=== PATIENT | female | born 1945 | race Caucasian/White ===

== ENCOUNTER 2017-09-28 12:11 | Inpatient (IN) | payer OTHER, MEDICARE ==
[2017-09-28] VITALS (23 sets, daily range): BP systolic 94–126; BP diastolic 54–82; PULSE 95–120; RESP 20–60; TEMP 98.1–98.3; O2SAT 57–100
[~2017-09-28] VITALS: Ht 162.6 cm; Wt 78.4 kg
[2017-09-28] MEDS ORDERED: cefTRIAXone INJ 2,000 MG in SODIUM CHLORIDE 0.9% INJ 100 ML IV STA (12:20)
[2017-09-28] MEDS ORDERED: AZITHROMYCIN INJ 500 MG in SODIUM CHLOR 0.9% 250 ML INJ 250 ML IV STA (12:20)
--- NOTE | 2017-09-28 12:27 | PD ---
HPI Chief Complaint: Respiratory Distress Time Seen by Provider: 12:20 Travel History International Travel<30 days: No Contact w/Intl Traveler<30days: No Traveled to known affect area: No History of Present Illness HPI Patient is brought in by . Severe shortness of breath, not able to provide much history, able to get some history from the . states that she has been progressively getting worse over the last 3 days or so she has been increasing her own home oxygen from 2 L up to as high as 5 nasal cannula. They try to go see their primary by where turned away and told to go to the ER because her pulse ox symmetry was low, per 's statement her oxygen level was 79 or 80% on oxygen while at the clinic, patient was able to be transported by private vehicle upon arrival at the emergency department here patient was straight back into her room [facility] Past Medical History ?: Not Social History Tobacco Use: No Allergies-Medications (Allergen,Severity, Reaction): Coded Allergies: doxycycline (Verified Allergy, Unknown, 09/28/17) sulfamethoxazole (Verified Allergy, Unknown, 09/28/17) trimethoprim (Verified Allergy, Unknown, 09/28/17) Reported Meds & Prescriptions Reported Meds & Active Scripts Active Reported Simvastatin 10 Mg Tab 10 Mg PO HS Review of Systems ROS Limitations: Clinical Condition General / Constitutional: No: Fever Eyes: No: Visual changes HENT: No: Headaches Cardiovascular: No: Chest Pain or Discomfort Respiratory: Positive: Shortness of Breath, Wheezing Gastrointestinal: No: Abdominal Pain Genitourinary: No: Dysuria Musculoskeletal: No: Pain Skin: No Rash Neurologic: No: Weakness Psychiatric: No: Depression Endocrine: No: Polydipsia Hematologic/Lymphatic: No: Easy Bruising Physical Exam Narrative GENERAL: Elderly female in respiratory distress SKIN: Warm and dry. HEAD: Atraumatic. Normocephalic. EYES: Pupils equal and round. No scleral icterus. No injection or drainage. ENT: No nasal bleeding or discharge. Mucous membranes pink and moist. NECK: Trachea midline. No JVD. CARDIOVASCULAR: Regular rate and rhythm. RESPIRATORY: Suprasternal and intercostal accessory muscle use. Severely affected and low tidal volumes bilaterally, moderate to severe wheezing bilaterally... Half to 1 word dyspnea GASTROINTESTINAL: Abdomen soft, non-tender, nondistended. MUSCULOSKELETAL: Extremities without clubbing, cyanosis, or edema. No obvious deformities. NEUROLOGICAL: Awake and alert. No obvious cranial nerve deficits. Motor grossly within normal limits. Five out of 5 muscle strength in the arms and legs. Normal speech. PSYCHIATRIC: Appropriate mood and affect; insight and judgment normal. Data Data Last Documented VS Vital Signs Date Time Temp Pulse Resp B/P (MAP) Pulse Ox O2 Delivery O2 Flow Rate FiO2 09/28/17 13:15 109 20 101/71 (81) 98 BiPAP 09/28/17 12:45 40 09/28/17 12:43 3.00 09/28/17 12:16 98.3 Orders Orders Sepsis Workup Initiated (09/28/17 ) Electrocardiogram (09/28/17 12:20) Complete Blood Count With Diff (09/28/17 12:20) Comprehensive Metabolic Panel (09/28/17 12:20) Prothrombin Time / Inr (Pt) (09/28/17 12:20) Act Partial Throm Time (Ptt) (09/28/17 12:20) Lactic Acid Sepsis Protocol (09/28/17 12:20) Lipase (09/28/17 12:20) Ckmb (Isoenzyme) Profile (09/28/17 12:20) Troponin I (09/28/17 12:20) Urinalysis - C+S If Indicated (09/28/17 12:20) Influenzae A/B Antigen (09/28/17 12:20) Blood Culture (09/28/17 12:20) Pneumococcal Urinary Antigen (09/28/17 12:20) Legionella Urinary Antigen (09/28/17 12:20) Chest, Single Ap (09/28/17 12:20) Ecg Monitoring (09/28/17 12:20) Iv Access Insert/Monitor (09/28/17 12:20) Oximetry (09/28/17 12:20) Oxygen Administration (09/28/17 12:20) Urinary Catheter Insert/Apply (09/28/17 12:20) Ceftriaxone Inj (Rocephin Inj) (09/28/17 12:20) Azithromycin Inj (Zithromax Inj) (09/28/17 12:20) Albuterol Neb (Albuterol Neb) (09/28/17 12:30) Methylprednisolone So Succ Inj (Solumedr (09/28/17 12:30) Sodium Chlorid 0.9% 500 Ml Inj (Ns 500 M (09/28/17 12:30) Arterial Blood Gas (Abg) (09/28/17 12:20) Resp Bipap / Cpap Non Invas Vt (09/28/17 12:20) Magnesium Sulfate 1 Gm Premix (Magnesium (09/28/17 12:30) Labs Laboratory Tests Test 09/28/17 12:22 White Blood Count 10.9 TH/MM3 Red Blood Count 5.21 MIL/MM3 Hemoglobin 15.6 GM/DL Hematocrit 46.7 % Mean Corpuscular Volume 89.5 FL Mean Corpuscular Hemoglobin 29.9 PG Mean Corpuscular Hemoglobin Concent 33.4 % Red Cell Distribution Width 14.6 % Platelet Count 301 TH/MM3 Mean Platelet Volume 6.8 FL Neutrophils (%) (Auto) 77.7 % Lymphocytes (%) (Auto) 15.1 % Monocytes (%) (Auto) 5.5 % Eosinophils (%) (Auto) 0.8 % Basophils (%) (Auto) 0.9 % Neutrophils # (Auto) 8.5 TH/MM3 Lymphocytes # (Auto) 1.6 TH/MM3 Monocytes # (Auto) 0.6 TH/MM3 Eosinophils # (Auto) 0.1 TH/MM3 Basophils # (Auto) 0.1 TH/MM3 CBC Comment DIFF FINAL Differential Comment Prothrombin Time 10.0 SEC Prothromb Time International Ratio 1.0 RATIO Activated Partial Thromboplast Time 30.3 SEC Blood Urea Nitrogen 11 MG/DL Creatinine 0.89 MG/DL Random Glucose 111 MG/DL Total Protein 7.8 GM/DL Albumin 3.2 GM/DL Calcium Level 9.9 MG/DL Alkaline Phosphatase 66 U/L Aspartate Amino Transf (AST/SGOT) 27 U/L Alanine Aminotransferase (ALT/SGPT) 25 U/L Total Bilirubin 0.6 MG/DL Sodium Level 137 MEQ/L Potassium Level 3.6 MEQ/L Chloride Level 100 MEQ/L Carbon Dioxide Level 27.6 MEQ/L Anion Gap 9 MEQ/L Estimat Glomerular Filtration Rate 63 ML/MIN Lactic Acid Level 1.7 mmol/L Total Creatine Kinase 34 U/L Troponin I LESS THAN 0.02 NG/ML Lipase 63 U/L MDM Medical Decision Making Medical Screen Exam Complete: Yes Emergency Medical Condition: Yes Medical Record Reviewed: Yes Interpretation(s) Sinus tachycardia, 109 bpm, nonspecific findings noted, no contiguous ST elevations or depressions, motion artifact Differential Diagnosis Hypoxemic respiratory failure due to COPD exacerbation versus pneumonia versus pneumothorax versus pulmonary edema versus anemia versus STEMI Narrative Course Coagulation profile within normal limits CBC shows no leukocytosis, no left shift, no anemia, normal platelet count Electrolytes are all within normal limits, normal kidney liver and pancreatic functions First set of cardiac enzymes negative Lactic acid 1.7 which is negative Flu test negative Critical Care Narrative CRITICAL CARE NOTE: With evaluation of the patient, labs, EKG, receipt of radiologic studies, administration of medications, reevaluation the patient and discussion of the patient with the admitting physicians, the total critical care time was [60] minutes. Time to perform other separately billable procedures was not included in the critical care time. The patient received supplemental oxygen, hour long albuterol nebulizers, immediately upon arrival. Followed closely by magnesium, Rocephin and azithromycin, Solu-Medrol, BiPAP. On reevaluation after approximately 60 minutes of observation and care the patient's respiratory rate has decreased from mid 30s down to mid 20s, pulse oximetry with normal pleth wave showed 97- 100 which is much improved however this is on for supplemental liters of oxygen and BiPAP. The patient is now able to speak full sentences although difficult to understand with the BiPAP mask that is on. Physician Communication Physician Communication Discussed the case with Dr. GRIMES, who accepted patient, admit orders pending abg results Diagnosis Primary Impression: Hypoxemic respiratory failure Admitting Information Admitting Physician Requests: Admit Souleymane Haynes MD Sep 28, 2017 12:27
[2017-09-28] MEDS ORDERED: methylPREDNISolone SOD SUCC 125 MG/2 ML VIAL IV PUSH ONE (12:30)
[2017-09-28] MEDS ORDERED: MAGNESIUM SULFATE 1 GM PREMIX 100 ML IV ONE (12:30)
[2017-09-28] MEDS ORDERED: SODIUM CHLORID 0.9% 500 ML INJ 500 ML IV ONE (12:30)
[2017-09-28] MEDS: RESP: ALBUTEROL 2.5 MG/3 ML NEB (SCH) INH (12:37)
[2017-09-28] MEDS ORDERED: SIMV10TA PO (12:43)
[2017-09-28 12:47] LABS: AUTOMATED NEUTROPHIL # 8.5 TH/MM3 (1.8-7.7); BASOPHIL # 0.1 TH/MM3 (0-0.2); BASOPHIL % 0.9 % (0.0-2.0); EOSINOPHIL # 0.1 TH/MM3 (0-0.4); EOSINOPHIL % 0.8 % (0.0-4.0); HEMATOCRIT 46.7 % (35.0-46.0); HEMOGLOBIN 15.6 GM/DL (11.6-15.3); LYMPH % 15.1 % (9.0-44.0); LYMPHOCYTE # 1.6 TH/MM3 (1.0-4.8); MEAN CELL VOLUME 89.5 FL (80.0-100.0); MEAN CORPUSCULAR HEMOGLOBIN 29.9 PG (27.0-34.0); MEAN CORPUSCULAR HGB CONC 33.4 % (32.0-36.0); MEAN PLATELET VOLUME 6.8 FL (7.0-11.0); MONO % 5.5 % (0.0-8.0); MONOCYTE # 0.6 TH/MM3 (0-0.9); NEUT % 77.7 % (16.0-70.0); PLATELET COUNT 301 TH/MM3 (150-450); RED BLOOD COUNT 5.21 MIL/MM3 (4.00-5.30); RED CELL DISTRIBUTION WIDTH 14.6 % (11.6-17.2); WHITE BLOOD COUNT 10.9 TH/MM3 (4.0-11.0)
[2017-09-28 12:52] LABS: CHLORIDE 100 MEQ/L (98-107); SODIUM (NA) 137 MEQ/L (136-145)
[2017-09-28 12:56] LABS: CALCIUM 9.9 MG/DL (8.5-10.1)
[2017-09-28 12:57] LABS: ALBUMIN 3.2 GM/DL (3.4-5.0); BICARBONATE 27.6 MEQ/L (21.0-32.0); BLOOD UREA NITROGEN 11 MG/DL (7-18); GLUCOSE,RANDOM 111 MG/DL (74-106)
[2017-09-28 12:59] LABS: ALT (GPT) 25 U/L (10-53); AST (GOT) 27 U/L (15-37); CREATININE 0.89 MG/DL (0.50-1.00); GLOMERULAR FILTRATION RATE 63 ML/MIN (>89)
[2017-09-28 13:01] LABS: TOTAL BILIRUBIN ADULT 0.6 MG/DL (0.2-1.0); TOTAL PROTEIN 7.8 GM/DL (6.4-8.2)
[2017-09-28 13:02] LABS: ALKALINE PHOSPHATASE 66 U/L (45-117)
[2017-09-28 13:05] LABS: TROPONIN I LESS THAN 0.02 NG/ML (0.02-0.05)
--- NOTE | 2017-09-28 14:39 | RADRPT ---
EXAM DATE: 09/28/2017 12:39 PM EDT AGE/SEX: 72 years / Female INDICATIONS: Short of breath. CLINICAL DATA: This is the patient's initial encounter. Patient reports that signs and symptoms have been present for 1 day and indicates a pain score of 1/10. MEDICAL/SURGICAL HISTORY: . Pulmonary fibrosis Mastectomy, right. COMPARISON: No prior exams available for comparison. FINDINGS: A single AP view of the chest demonstrates chronic interstitial changes throughout both lungs. No inf iltrate or effusion. Heart is at the upper limits of normal in terms of size. Elevation of the right hemidiaphragm. Degenerative changes of the thoracic spine. CONCLUSION: Chronic interstitial changes. No acute infiltrate. Electronically signed by: Carlitos Hubbard MD 09/28/2017 12:49 PM EDT
[2017-09-28 16:29] LABS: BILIRUBIN, URINE NEG (NEG); BLOOD, URINE LARGE (NEG); GLUCOSE,URINE NEG (NEG); KETONE, URINE NEG (NEG); NITRITE,URINE NEG (NEG); PH, URINE 6.5 (5.0-8.5); URINE COLOR YELLOW (YELLW/STRAW); URINE LEUKOCYTE ESTERASE TRACE (NEG)
[2017-09-28 16:35] LABS: AMORPHOUS SEDIMENT, URINE FEW; TRANSITIONAL EPI CELLS, URINE 0-5 /hpf
[2017-09-28] MEDS ORDERED: MAGNESIUM HYDROXIDE SUSP 30 ML CUP PO PRN (17:00)
[2017-09-28] MEDS ORDERED: LACTULOSE SYRUP 20 GM/30 ML CUP PO PRN (17:00)
[2017-09-28] MEDS ORDERED: SENNOSIDES 8.6 MG TAB PO PRN (17:00)
[2017-09-28] MEDS ORDERED: BISACODYL 10 MG SUPP RECTAL PRN (17:00)
[2017-09-28] MEDS ORDERED: SODIUM CHLORIDE 0.9% FLUSH 10 ML FLUSH IV FLUSH PRN (17:00)
[2017-09-28] MEDS ORDERED: NALOXONE HCL 0.4 MG/ML AMP IV PUSH PRN (17:00)
[2017-09-28] MEDS ORDERED: METOCLOPRAMIDE HCL 10 MG/2 ML VIAL IV PUSH PRN (17:00)
[2017-09-28] MEDS ORDERED: RESP: ALBUTEROL 2.5 MG/IPRATROPIUM 0.5 MG NEB (PRN) NEB (17:15)
--- NOTE | 2017-09-28 18:32 | HHI.HP ---
[facility] Service [facility] Primary Care Physician Rebecca Byers Do, MD Admission Diagnosis HYPOXEMIC RESPIRATORY FAILURE ON BIPAP Diagnoses: Travel History International Travel<30 Days: No Contact w/Intl Traveler <30 Da: No Traveled to Known Affected Are: No History of Present Illness Patient is a 72-year-old female with past medical history of idiopathic pulmonary fibrosis, thyroid nodules, hyperlipidemia presented to the ED with severe shortness of breath. Patient's radiotelegrapher is Dr. Wick. She states that she was so short of breath since yesterday that she made an appointment with her primary care doctor, Dr. Price, at 1130 am and she was told to come directly to the emergency room. She was already on 5 L nasal cannula and was satting in the 80s. Patient states that when she saw Dr. Wick on June she had asked about being on prednisone however at the time he did not feel that giving it to her was warranted as he was concerned about the side effects of the medication. However at the end of July on she started feeling really bad but again turned the corner and felt better however on August [address] Wick and told him about her symptoms and he started her on prednisone 10mg 3 times daily. Over the past 2 weeks after that prescription was started she felt very much improved however as the taper started she started progressively feeling worse. She completed the taper and she states that she could feel her lungs worsening as the dose was being decreased. On Sunday/ of this week she really felt bad and yesterday was her worst day. She could barely walk from her bedroom to her the bathroom and she started increasing her oxygen requirement to 5 L. At some point her O2 sats dropped to 44 and she notified her and ended up making an appointment with Dr. Price (as she needs her PCP to place a referral to her pulm before she can f/u w Dr. Wick). She has a chronic cough. She denies any fevers or chills. She denies any nausea vomiting , burning with urination, abdominal pain. She has some pain in between her ribs from using her accessory muscles for the past few days. She denies any sick contacts. She denies however any actual chest pains. Patient was seen in the emergency room and started on BiPAP and received IV steroids. She is now in the ICU and off BiPAP on 4 L nasal cannula. She tells me she is 90% better. She feels so much better that she wonders when she can go home. Review of Systems Except as stated in HPI: all other systems reviewed are Neg Past Family Social History Past Medical History IPF, hyperlipidemia, thyroid nodules Past Surgical History Stapedectomy on the left, right mastectomy, vaginal cyst removed, cyst removal on the arch of her foot, right foot reconstruction. Reported Medications Reported Meds & Active Scripts Active Reported Simvastatin 10 Mg Tab 10 Mg PO HS Allergies: Coded Allergies: doxycycline (Verified Allergy, Unknown, 09/28/17) sulfamethoxazole (Verified Allergy, Unknown, 09/28/17) trimethoprim (Verified Allergy, Unknown, 09/28/17) Family History Parents were very secretive about their medical history. She does not know much about them other than her mother had her gallbladder removed and her father was in the hospital for almost 5 years due "broken back" Social History Quit smoking in 2004 however she used to smoke a pack a day which last 5-7 days. Denies alcohol use or illegal drug use. Physical Exam Vital Signs Vital Signs Date Time Temp Pulse Resp B/P (MAP) Pulse Ox O2 Delivery O2 Flow Rate FiO2 09/28/17 15:36 09/28/17 15:30 100 40 09/28/17 15:15 95 20 101/54 (70) 98 BiPAP 09/28/17 14:16 105 22 108/66 (80) 95 BiPAP 09/28/17 13:15 109 20 101/71 (81) 98 BiPAP 09/28/17 12:45 98 40 09/28/17 12:43 118 24 108/77 (87) 90 Nasal Cannula 3.00 09/28/17 12:36 92 Nasal Cannula 3.00 09/28/17 12:36 92 Nasal Cannula 3.00 09/28/17 12:31 92 Nasal Cannula 3.00 09/28/17 12:16 98.3 120 60 121/75 (90) 57 Physical Exam GENERAL: Laying in bed, still mildly using accessory muscles. SKIN: No rashes, ecchymoses or lesions. Cool and dry. HEAD: Atraumatic. Normocephalic. No temporal or scalp tenderness. EYES: Extraocular motions intact. No scleral icterus. No injection or drainage. ENT: Nose without drainage.Airway patent. NECK: Trachea midline. CARDIOVASCULAR: Mildly tachycardic with no murmurs. RESPIRATORY: Crackles at the bases but no wheezing GASTROINTESTINAL: Abdomen soft, non-tender, nondistended. No guarding. MUSCULOSKELETAL: Extremities without edema. No calf tenderness. Negative Homans sign bilaterally. NEUROLOGICAL: Awake and alert. Cranial nerves II through XII intact. Motor and sensory grossly within normal limits. Normal speech. Laboratory Laboratory Tests Test 09/28/17 12:22 09/28/17 13:54 09/28/17 16:15 White Blood Count 10.9 Red Blood Count 5.21 Hemoglobin 15.6 Hematocrit 46.7 Mean Corpuscular Volume 89.5 Mean Corpuscular Hemoglobin 29.9 Mean Corpuscular Hemoglobin Concent 33.4 Red Cell Distribution Width 14.6 Platelet Count 301 Mean Platelet Volume 6.8 Neutrophils (%) (Auto) 77.7 Lymphocytes (%) (Auto) 15.1 Monocytes (%) (Auto) 5.5 Eosinophils (%) (Auto) 0.8 Basophils (%) (Auto) 0.9 Neutrophils # (Auto) 8.5 Lymphocytes # (Auto) 1.6 Monocytes # (Auto) 0.6 Eosinophils # (Auto) 0.1 Basophils # (Auto) 0.1 CBC Comment DIFF FINAL Differential Comment Prothrombin Time 10.0 Prothromb Time International Ratio 1.0 Activated Partial Thromboplast Time 30.3 Blood Urea Nitrogen 11 Creatinine 0.89 Random Glucose 111 Total Protein 7.8 Albumin 3.2 Calcium Level 9.9 Alkaline Phosphatase 66 Aspartate Amino Transf (AST/SGOT) 27 Alanine Aminotransferase (ALT/SGPT) 25 Total Bilirubin 0.6 Sodium Level 137 Potassium Level 3.6 Chloride Level 100 Carbon Dioxide Level 27.6 Anion Gap 9 Estimat Glomerular Filtration Rate 63 Lactic Acid Level 1.7 Total Creatine Kinase 34 Troponin I LESS THAN 0.02 Lipase 63 Blood Gas Puncture Site LT BRACHIAL Blood Gas Patient Temperature 98.6 Blood Gas HCO3 27 Blood Gas Base Excess 4.0 Blood Gas Oxygen Saturation 96 Arterial Blood pH 7.49 Arterial Blood Partial Pressure CO2 37 Arterial Blood Partial Pressure O2 115 Arterial Blood Oxygen Content 20.1 Arterial Blood Carboxyhemoglobin 1.9 Arterial Blood Methemoglobin 1.1 Blood Gas Hemoglobin 14.8 Oxygen Delivery Device BIPAP Blood Gas Ventilator Setting IPAP 10/ EPAP 5 Blood Gas Inspired Oxygen 40 Urine Collection Type CLEAN CATCH Urine Color YELLOW Urine Turbidity SL CLOUDY Urine pH 6.5 Urine Specific [place] LESS/EQUAL 1.005 Urine Protein NEG Urine Glucose (UA) NEG Urine Ketones NEG Urine Occult Blood LARGE Urine Nitrite NEG Urine Bilirubin NEG Urine Urobilinogen 0.2 Urine Leukocyte Esterase TRACE Urine RBC 20-24 Urine WBC 9-14 Urine Squamous Epithelial Cells 6-8 Urine Transitional Epithelial Cells 0-5 Urine Amorphous Sediment FEW Microscopic Urinalysis Comment CULTURE INDICATED Urine Collection Time 1615 Date/Time Source Procedure Growth Status 09/28/17 12:22 Blood Peripheral Aerobic Blood Culture Pending Received 09/28/17 12:22 Blood Peripheral Anaerobic Blood Culture Pending Received 09/28/17 12:47 Nasal Washing Influenza Types A,B Antigen (ANTHONY) - Final NEGATIVE FOR FLU A AND B ANTIGEN.... Complete 09/28/17 16:20 Urine Catheterized Urine Legionella Antigen Pending Received 09/28/17 16:20 Urine Catheterized Urine Streptococcus pneumoniae Antigen (M Pending Received Result Diagram: 09/28/17 1222 09/28/17 1222 Imaging Last Impressions Chest X-Ray 09/28/17 1220 Signed Impressions: CONCLUSION: Chronic interstitial changes. No acute infiltrate. Caprini VTE Risk Assessment Caprini VTE Risk Assessment: Mod/High Risk (score >= 2) Caprini Risk Assessment Model Point Value = 1 Point Value = 2 Point Value = 3 Point Value = 5 Age 41-60 Minor surgery BMI > 25 kg/m2 Swollen legs Varicose veins or History of unexplained or recurrent spontaneous Oral contraceptives or hormone replacement Sepsis (< 1 month) Serious lung disease, including pneumonia (< 1 month) Abnormal pulmonary function Acute myocardial infarction Congestive heart failure (< 1 month) History of inflammatory bowel disease Medical patient at bed rest Age 61-74 Arthroscopic surgery Major open surgery (> 45 min) Laparoscopic surgery (> 45 min) Malignancy Confined to bed (> 72 hours) Immobilizing plaster cast Central venous access Age >= 75 History of VTE Family history of VTE Factor V Leiden Prothrombin [id number] Lupus anticoagulant Anticardiolipin antibodies Elevated serum homocysteine Heparin-induced thrombocytopenia Other congenital or acquired thrombophilia Stroke (< 1 month) Elective arthroplasty Hip, pelvis, or leg fracture Acute spinal cord injury (< 1 month) Prophylaxis Regimen Total Risk Factor Score Risk Level Prophylaxis Regimen 0-1 Low Early ambulation 2 Moderate Order ONE of the following: *Sequential Compression Device (SCD) *Heparin 5000 units SQ BID 3-4 Higher Order ONE of the following medications: *Heparin 5000 units SQ TID *Enoxaparin/Lovenox 40 mg SQ daily (WT < 150 kg, CrCl > 30 mL/min) *Enoxaparin/Lovenox 30 mg SQ daily (WT < 150 kg, CrCl > 10-29 mL/min) *Enoxaparin/Lovenox 30 mg SQ BID (WT < 150 kg, CrCl > 30 mL/min) AND/OR *Sequential Compression Device (SCD) 5 or more Highest Order ONE of the following medications: *Heparin 5000 units SQ TID (Preferred with Epidurals) *Enoxaparin/Lovenox 40 mg SQ daily (WT < 150 kg, CrCl > 30 mL/min) *Enoxaparin/Lovenox 30 mg SQ daily (WT < 150 kg, CrCl > 10-29 mL/min) *Enoxaparin/Lovenox 30 mg SQ BID (WT < 150 kg, CrCl > 30 mL/min) AND *Sequential Compression Device (SCD) Assessment and Plan Assessment and Plan Idiopathic pulmonary fibrosis/respiratory failure/hypoxia: Patient came into the ED with sats in the 50s. He was immediately started on BiPAP and ABG after an hour showed pH of 7.49, PCO2 of 37, HCO3 of 27. Patient was admitted to the ICU. She received a dose of Solu-Medrol, antibiotics, magnesium sulfate IV and breathing treatment x3 in the emergency room. Patient currently is off BiPAP. She is telling me that she is feeling a lot better almost 90% better. She is currently on 4 L nasal cannula satting 95%. Have continued the IV Solu-Medrol, antibiotics such as ceftriaxone and azithromycin and will continue breathing treatments every 6 hours while awake. She tells me that she had a great response to outpatient steroid therapy. At this time I will consult pulmonology for further recommendations. She is known to Dr. Wick. Chest x- ray just shows chronic interstitial changes with no acute infiltrate. Monitor vital signs closely. Continue to titrate down the oxygen requirements. Hopefully we can bring her down to 2 L nasal cannula. Encourage use of incentive spirometer every hour while awake. Hyperlipidemia: Resume her home medication. UA is concerning for UTI with trace leukocyte esterase, 9-14 WBC, 20-24 RBCs however there are squamous epithelial cells 6-8. We will follow up the urine cultures patient denied any symptoms. Currently she is on IV Rocephin we will continue for now and monitor DVT prophylaxis: Lovenox Code Status Full code Discussed Condition With ER physician, patient Celine Scott MD Sep 28, 2017 18:32
[2017-09-28] MEDS: ENOXAPARIN SODIUM 40 MG/0.4 ML SYRINGE SQ SCH (18:49)
[2017-09-28] MEDS: methylPREDNISolone SOD SUCC 40 MG/1 ML VIAL IV PUSH SCH ×2 (18:49→23:20)
[2017-09-28] MEDS: RESP: ALBUTEROL 2.5 MG/IPRATROPIUM 0.5 MG NEB (SCH) NEB (19:13)
[2017-09-28] MEDS ORDERED: CHLORHEXIDINE GLUCONATE 2 % 1 PACK (2 CLOTHS)(extra cloths) TOPICAL PRN (20:30)
[2017-09-28] MEDS: DOCUSATE SODIUM 50 MG/SENNA 8.6 MG TAB PO SCH (21:00)
[2017-09-28] MEDS: PRAVASTATIN SOD 20 MG TAB PO SCH (21:00)
[2017-09-28] MEDS: SODIUM CHLORIDE 0.9% FLUSH 10 ML FLUSH IV FLUSH SCH (23:20)
[2017-09-29] VITALS (19 sets, daily range): BP systolic 95–134; BP diastolic 56–72; PULSE 80–120; RESP 16–43; TEMP 96.8–98.2; O2SAT 90–98
[2017-09-29] MEDS: CHLORHEXIDINE GLUCONATE 2 % 1 PACK (2 CLOTHS)(taper/protocol) TOPICAL SCH (04:00)
[2017-09-29] MEDS: methylPREDNISolone SOD SUCC 40 MG/1 ML VIAL IV PUSH SCH ×3 (05:45→22:42)
[2017-09-29 06:37] LABS: AUTOMATED NEUTROPHIL # 10.3 TH/MM3 (1.8-7.7); BASOPHIL # 0.1 TH/MM3 (0-0.2); BASOPHIL % 0.7 % (0.0-2.0); EOSINOPHIL % 0.1 % (0.0-4.0); HEMATOCRIT 40.9 % (35.0-46.0); HEMOGLOBIN 13.9 GM/DL (11.6-15.3); LYMPH % 9.2 % (9.0-44.0); LYMPHOCYTE # 1.1 TH/MM3 (1.0-4.8); MEAN CELL VOLUME 88.6 FL (80.0-100.0); MEAN CORPUSCULAR HEMOGLOBIN 30.1 PG (27.0-34.0); MEAN PLATELET VOLUME 7.5 FL (7.0-11.0); MONO % 0.9 % (0.0-8.0); MONOCYTE # 0.1 TH/MM3 (0-0.9); NEUT % 89.1 % (16.0-70.0); PLATELET COUNT 283 TH/MM3 (150-450); RED BLOOD COUNT 4.61 MIL/MM3 (4.00-5.30); RED CELL DISTRIBUTION WIDTH 14.8 % (11.6-17.2); WHITE BLOOD COUNT 11.6 TH/MM3 (4.0-11.0)
[2017-09-29 07:05] LABS: BICARBONATE 26.4 MEQ/L (21.0-32.0); CALCIUM 8.7 MG/DL (8.5-10.1); CREATININE 0.89 MG/DL (0.50-1.00)
[2017-09-29] MEDS: RESP: ALBUTEROL 2.5 MG/IPRATROPIUM 0.5 MG NEB (SCH) NEB ×3 (07:44→19:30)
[2017-09-29] MEDS: DOCUSATE SODIUM 50 MG/SENNA 8.6 MG TAB PO SCH ×2 (09:00→20:53)
[2017-09-29] MEDS: AZITHROMYCIN 250 MG TAB PO SCH (09:06)
[2017-09-29] MEDS: SODIUM CHLORIDE 0.9% FLUSH 10 ML FLUSH IV FLUSH SCH ×2 (09:06→21:02)
--- NOTE | 2017-09-29 11:20 | HHI.PR ---
Subjective Remarks Pt states she feels a lot better. No chest pains. no n/v/abdominal pain. Wonders if she will be getting steroids at the time of discharge. Concerns about the tapering of steroids. Objective Vitals Vital Signs Date Time Temp Pulse Resp B/P (MAP) Pulse Ox O2 Delivery O2 Flow Rate FiO2 09/29/17 07:46 95 Nasal Cannula 4.00 09/29/17 06:00 83 09/29/17 05:42 88 27 100/65 (77) 96 09/29/17 04:42 98.2 90 24 95/56 (69) 96 09/29/17 04:00 90 09/29/17 03:42 88 26 98/60 (73) 95 09/29/17 02:42 88 31 97/62 (74) 95 09/29/17 02:00 80 09/29/17 01:42 82 29 97/66 (76) 97 09/29/17 00:42 97.7 82 28 98/63 (75) 98 09/29/17 00:00 82 09/28/17 23:50 96 40 09/28/17 23:42 104 29 126/79 (95) 94 09/28/17 22:42 98 28 109/72 (84) 93 09/28/17 22:00 104 09/28/17 21:42 102 32 109/63 (78) 92 09/28/17 20:42 98.2 108 30 100/60 (73) 90 09/28/17 20:00 118 09/28/17 19:42 116 43 103/57 (72) 92 09/28/17 19:15 92 Nasal Cannula 4.00 09/28/17 18:50 116 60 117/68 (84) 09/28/17 18:42 116 48 94/59 (71) 09/28/17 18:00 108 48 111/68 (82) 93 09/28/17 18:00 108 09/28/17 17:01 98.1 106 39 113/82 (92) 96 09/28/17 17:00 110 09/28/17 16:00 106 09/28/17 15:36 09/28/17 15:30 100 40 09/28/17 15:15 95 20 101/54 (70) 98 BiPAP 09/28/17 14:16 105 22 108/66 (80) 95 BiPAP 09/28/17 13:15 109 20 101/71 (81) 98 BiPAP 09/28/17 12:45 98 40 09/28/17 12:43 118 24 108/77 (87) 90 Nasal Cannula 3.00 09/28/17 12:36 92 Nasal Cannula 3.00 09/28/17 12:36 92 Nasal Cannula 3.00 09/28/17 12:31 92 Nasal Cannula 3.00 09/28/17 12:16 98.3 120 60 121/75 (90) 57 I/O 09/28/17 09/28/17 09/28/17 09/29/17 09/29/17 09/29/17 07:00 15:00 23:00 07:00 15:00 23:00 Intake Total 600 ml 590 ml 480 ml Output Total 400 ml 400 ml Balance 600 ml 190 ml 80 ml Intake Oral 240 ml 480 ml IV Total 600 ml 350 ml Output Urine Total 400 ml 400 ml # Bowel Movements 0 0 Result Diagram: 09/29/17 0530 09/29/17 0530 Imaging Last Impressions Chest X-Ray 09/28/17 1220 Signed Impressions: CONCLUSION: Chronic interstitial changes. No acute infiltrate. Objective Remarks GENERAL: appears CARDIOVASCULAR: Mildly tachycardic with no murmurs. RESPIRATORY: Crackles at the bases but no wheezing, minimal use of accessory muscles. on 4L GASTROINTESTINAL: Abdomen soft, non-tender, nondistended. No guarding. MUSCULOSKELETAL: Extremities without edema. No calf tenderness. Negative Homans sign bilaterally. NEUROLOGICAL: Awake and alert. Normal speech. A/P Assessment and Plan Idiopathic pulmonary fibrosis/respiratory failure/hypoxia: Patient came into the ED with sats in the 50s. She was immediately started on BiPAP and ABG after an hour showed pH of 7.49, PCO2 of 37, HCO3 of 27. Patient was admitted to the ICU. She received a dose of Solu-Medrol, antibiotics, magnesium sulfate IV and breathing treatment x3 in the emergency room. Patient currently is off BiPAP. Pt states she is feeling a lot better. She is currently on 4 L nasal cannula satting 95%. Continued the IV Solu-Medrol which I have started to wean , antibiotics such as ceftriaxone and azithromycin and breathing treatments every 6 hours while awake. She tells me that she had a great response to outpatient steroid therapy. awaiting pulmonology team for further recommendations. She is known to Dr. Wick. Chest x-ray just shows chronic interstitial changes with no acute infiltrate. Monitor vital signs closely. Continue to titrate down the oxygen requirements. Hopefully we can bring her down to 2 L nasal cannula. Encourage use of incentive spirometer every hour while awake. Neg for legionella/strep Hyperlipidemia: Resume her home medication. UA is concerning for UTI with trace leukocyte esterase, 9-14 WBC, 20-24 RBCs however there are squamous epithelial cells 6-8. urine cultures pending but patient denied any symptoms. Currently she is on IV Rocephin we will continue for now and monitor DVT prophylaxis: Lovenox Discharge Planning continue to wean pt off oxygen, transfer her to floor. Celine Scott MD Sep 29, 2017 11:20
[2017-09-29] MEDS ORDERED: GLUCAGON 1 MG/ML VIAL OTHER PRN (11:30)
[2017-09-29] MEDS ORDERED: DEXTROSE 50% IN WATER 50 ML VIAL(D50) IV PUSH PRN (11:30)
[2017-09-29] MEDS: INSULIN ASPART SUPPLEMENTAL SCALE SQ SCH ×3 (12:00→21:02)
[2017-09-29 13:20] LABS: HEMOGLOBIN A1C 5.9 % (4.3-6.0)
[2017-09-29] MEDS ORDERED: cefTRIAXone INJ 1,000 MG in SODIUM CHLORIDE 0.9% INJ 100 ML IV SCH (16:00)
--- NOTE | 2017-09-29 17:28 | MB ---
cc: Hema Wick MD, Arjun D MD Hwang, DATE: 09/29/2017 REQUESTING PHYSICIAN: Dr. Celine Scott REASON FOR CONSULTATION: Shortness of breath, pulmonary fibrosis. HISTORY OF PRESENT ILLNESS: Ms. Morrow is a pleasant 72-year-old female who is known to me from the office. She has a history for pulmonary fibrosis. She uses oxygen 2 to 4 liters nasal cannula. She was being maintained on prednisone 30 mg and tapered it off. When she tapered off the prednisone, she felt that her breathing was getting worse to the extent that she could barely walk inside the house and she noted that her oxygen was going down in the 70s. She went to see Dr. Byers and she was hypoxic and sent to the emergency room. The patient was initially admitted in the ICU. She was given BiPAP therapy and nebulizer treatment. She feels significantly better, weaned down to 4 liters nasal cannula. LABORATORY DATA: WBC count 11.6, hemoglobin 13.9, hematocrit 40.9, MCV 88, platelet count 283. Sodium 137, potassium 3.6, chloride 100, CO2 of 26, BUN 14, creatinine 0.89. Blood gas: PH 7.49, pCO2 of 37, pO2 of 115 on 40% BiPAP. PAST MEDICAL HISTORY: Significant for history of pulmonary fibrosis, thyroid nodule, hyperlipidemia, history of Breast surgery. MEDICATIONS: She is currently taking Rocephin 1 gram and Solu-Medrol 40 mg q.8 hours. Zithromax 500 mg a day. Pravastatin 20 mg daily. Albuterol Atrovent nebulizer treatment, Lovenox 20 mg a day. ALLERGIES: DOXYCYCLINE, SULFAMETHOXAZOLE-TRIMETHOPRIM. SOCIAL HISTORY: She has a history of smoking, which she quit in 2004. No alcohol use. FAMILY HISTORY: She is . REVIEW OF SYSTEMS: She walks only short distances and gets exhausted easily, but she takes oxygen. No seizures, stroke. No DVT or pulmonary embolism. PHYSICAL EXAMINATION: GENERAL: Elderly female short of breath even at rest. VITAL SIGNS: Blood pressure 113/58, heart rate 111, respiratory rate 22, temperature 96.8, saturation 94% on 4 liters nasal cannula. HEENT: Unremarkable. NECK: Supple. JVD not raised. CHEST: Equal bilaterally. She has inspiratory rales. HEART: S1, S2 normal. ABDOMEN: Benign. EXTREMITIES: No edema. IMPRESSION: 1. Pulmonary fibrosis. 2. Hypoxia. 3. Anxiety disorder. 4. Hyperlipidemia. PLAN: I discussed with the patient. She is on IV Solu-Medrol. We will try to wean off and try to maintain her at home on 40 mg prednisone a day for a couple of weeks and then gradually titrate to the lowest dose that she can tolerate. I discussed with her the side effect of the prednisone, which she understands well. She has anxiety, does not want any anxiolytic medications . Continue subcutaneous Lovenox. I discussed with Dr. Scott probably we can discontinue her antibiotic. No need for antibiotic at this time. Further treatment will depend on the course in the hospital. Thank you, Dr. Scott, for this consult. MD DARI Melendrez/SA/ , 04:34 PM , 05:04 PM VAUGHN
[2017-09-29] MEDS: ENOXAPARIN SODIUM 40 MG/0.4 ML SYRINGE SQ SCH (17:48)
[2017-09-29] MEDS: PRAVASTATIN SOD 20 MG TAB PO SCH (20:54)
[2017-09-30] VITALS: BP 103/60; PULSE 100; RESP 16; TEMP 96.8; O2SAT 94
[2017-09-30] MEDS: CHLORHEXIDINE GLUCONATE 2 % 1 PACK (2 CLOTHS)(taper/protocol) TOPICAL SCH (00:24)
[2017-09-30] MEDS: methylPREDNISolone SOD SUCC 40 MG/1 ML VIAL IV PUSH SCH ×2 (06:06→14:01)
[2017-09-30] MEDS: RESP: ALBUTEROL 2.5 MG/IPRATROPIUM 0.5 MG NEB (SCH) NEB (07:31)
[2017-09-30] MEDS: INSULIN ASPART SUPPLEMENTAL SCALE SQ SCH ×2 (07:35→11:53)
[2017-09-30 07:54] VITALS: BP 116/74; PULSE 94; RESP 18; TEMP 96.5; O2SAT 97
[2017-09-30] MEDS: AZITHROMYCIN 250 MG TAB PO SCH (08:12)
[2017-09-30] MEDS: SODIUM CHLORIDE 0.9% FLUSH 10 ML FLUSH IV FLUSH SCH (08:13)
[2017-09-30] MEDS: DOCUSATE SODIUM 50 MG/SENNA 8.6 MG TAB PO SCH (08:15)
[2017-09-30 08:23] VITALS: O2SAT 96
[2017-09-30 11:58] VITALS: BP 120/65; PULSE 105; RESP 18; TEMP 97.2; O2SAT 97
[2017-09-30] MEDS ORDERED: busPIRone HCL 5 MG TAB PO SCH (13:00)
[2017-09-30] MEDS ORDERED: PRED10 PO (13:58)
[2017-09-30] MEDS ORDERED: IPRASOL INH (13:58)
[2017-09-30] MEDS ORDERED: BUSP5TAB PO (13:58)
--- NOTE | 2017-09-30 14:06 | HHI.PR ---
Subjective Remarks 72 YOWf with PF,hypoxia, anxiety Feels better, wants to go home at BS Agrees to try Buspar. Objective Vital Signs Vital Signs Date Time Temp Pulse Resp B/P (MAP) Pulse Ox O2 Delivery O2 Flow Rate FiO2 09/30/17 11:58 97.2 105 18 120/65 (83) 97 09/30/17 08:23 96 Nasal Cannula 4.00 09/30/17 07:54 96.5 94 18 116/74 (88) 97 09/30/17 00:00 96.8 100 16 103/60 (74) 94 09/29/17 20:00 98.0 120 16 134/70 (91) 90 09/29/17 19:33 92 Nasal Cannula 4.00 09/29/17 15:07 96.8 111 20 113/58 (76) 94 I/O 09/29/17 09/29/17 09/29/17 09/30/17 09/30/17 09/30/17 07:00 15:00 23:00 07:00 15:00 23:00 Intake Total 480 ml 240 ml 480 ml 240 ml Output Total 400 ml 400 ml 0 ml Balance 80 ml -160 ml 480 ml 240 ml Intake Oral 480 ml 240 ml 480 ml 240 ml Output Urine Total 400 ml 400 ml 0 ml # Voids 1 # Bowel Movements 0 0 0 Result Diagram: 09/29/17 0530 09/29/17 0530 Objective Remarks GENERAL: elderly anxious female, mild sob Dessaturates with activity SKIN: Warm and dry. HEAD: Normocephalic. EYES: No scleral icterus. No injection or drainage. NECK: Supple, trachea midline. No JVD or lymphadenopathy. CARDIOVASCULAR: Regular rate and rhythm without murmurs, gallops, or rubs. RESPIRATORY: Breath sounds equal bilaterally. No accessory muscle use. Insp rales GASTROINTESTINAL: Abdomen soft, non-tender, nondistended. MUSCULOSKELETAL: No cyanosis, or edema. BACK: Nontender without obvious deformity. No CVA tenderness. A/P Assessment and Plan IMPRESSION: 1. Pulmonary fibrosis. 2. Hypoxia. 3. Anxiety disorder. 4. Hyperlipidemia. PLAN: LEXY Pt and " I have 02 at home, I will be better off home" LEXY Youssef DC Plans for home Pred 10 mg tid Buspar 5 mg tid 02 to keep sat >88% FU in office 2 weeks Hema Wick MD Sep 30, 2017 14:06
--- NOTE | 2017-09-30 14:08 | HHI.PR ---
Subjective Remarks Pt insists on going home today. States that staying in the hospital makes her very emotional and she "hates" hospitals. Pt states that movement makes her extremely sob and her sats usually drop whenever she moves. however once she sits down and calms down her sats go back up. She states that since she has been admitted she has felt a lot better. She did get up to bedside commode w assistance and then went back to her recliner and sats dropped to the 70's however after taking deep breaths her sats went back up to the mid 90's. She states that this is her baseline and at home she has to keep the oxygen to 4L. I discussed w Dr. Wick these findings and he tells me that this is her baseline. She is supposed to be on 4L at home. Pt states that she is not "anxious" but "emotional" but is agreeable to try an anti-anxiolytic Objective Vitals Vital Signs Date Time Temp Pulse Resp B/P (MAP) Pulse Ox O2 Delivery O2 Flow Rate FiO2 09/30/17 11:58 97.2 105 18 120/65 (83) 97 09/30/17 08:23 96 Nasal Cannula 4.00 09/30/17 07:54 96.5 94 18 116/74 (88) 97 09/30/17 00:00 96.8 100 16 103/60 (74) 94 09/29/17 20:00 98.0 120 16 134/70 (91) 90 09/29/17 19:33 92 Nasal Cannula 4.00 09/29/17 15:07 96.8 111 20 113/58 (76) 94 I/O 09/29/17 09/29/17 09/29/17 09/30/17 09/30/17 09/30/17 07:00 15:00 23:00 07:00 15:00 23:00 Intake Total 480 ml 240 ml 480 ml 240 ml Output Total 400 ml 400 ml 0 ml Balance 80 ml -160 ml 480 ml 240 ml Intake Oral 480 ml 240 ml 480 ml 240 ml Output Urine Total 400 ml 400 ml 0 ml # Voids 1 # Bowel Movements 0 0 0 Result Diagram: 09/29/17 0530 09/29/17 0530 Imaging Last Impressions Chest X-Ray 09/28/17 1220 Signed Impressions: CONCLUSION: Chronic interstitial changes. No acute infiltrate. Objective Remarks GENERAL: initially was sob after getting up from bedside commode and then walking to the recliner. SOB improved after rest and taking deep breaths. CARDIOVASCULAR: Mildly tachycardic with no murmurs. RESPIRATORY: Crackles at the bases but no wheezing, no accessory muscles once rested. on 4L GASTROINTESTINAL: Abdomen soft, non-tender, nondistended. No guarding. MUSCULOSKELETAL: Extremities without edema. No calf tenderness. Negative Homans sign bilaterally. NEUROLOGICAL: Awake and alert. Normal speech. A/P Assessment and Plan Idiopathic pulmonary fibrosis/respiratory failure/hypoxia: Patient came into the ED with sats in the 50s. She was immediately started on BiPAP and ABG after an hour showed pH of 7.49, PCO2 of 37, HCO3 of 27. Patient was admitted to the ICU. She received a dose of Solu-Medrol, antibiotics, magnesium sulfate IV and breathing treatment x3 in the emergency room. Patient currently is off BiPAP and on 4L. Pt states she is feeling a lot better and was downgraded to med/surg. I discussed the case w Dr. Wick and told him about the drop in O2 sats w ambulation. This is her baseline. He evaluated the patient today and he recommends starting pt on buspar 5mg po TID and prednisone 10mg po TID. We have stopped abx. continue breathing treatments. Chest x-ray just shows chronic interstitial changes with no acute infiltrate. Encourage use of incentive spirometer every hour while awake. Neg for legionella/strep Hyperlipidemia: Resume her home medication. UA is concerning for UTI with trace leukocyte esterase, 9-14 WBC, 20-24 RBCs however there are squamous epithelial cells 6-8. urine cultures grew 50-100, 000 cfu/ml mixed gram pos mildred. Pt asymptomatic. no further treatment needed. Discharge Planning ok to d/c pt today f/u w pulm in 2 weeks and PCP within 1 week script in chart condition: stable activity as tolerated heart healthy diet Celine Scott MD Sep 30, 2017 14:08
--- NOTE | 2017-09-30 15:15 | EKG ---
Date Performed: 09/28/2017 Time Performed: 12:18:32 PTAGE: 72 years EKG: SINUS TACHYCARDIA POSSIBLE LEFT ATRIAL ENLARGEMENT POSSIBLE ANTERIOR MYOCARDIAL INFARCTION INFERIOR MYOCARDIAL INFARCTION ABNORMAL ECG INTERPRETATION BASED ON A DEFAULT AGE OF 40 YEARS PREVIOUS TRACING : 04/30/1995 10.43 Since the previous tracing, no significant change not ed DOCTOR: Farhat Vasquez Interpretating Date/Time 09/30/2017 15:12:29
== END 2017-09-30 14:40 | disposition home or self-care (01) | DRG 189 ==
LOC: PHED 12:11 → PHEDA 14:04 → PHICU 15:52 → OBSVTOIN 17:02 → PH3B 09-29 14:28
PROVIDERS: ADMIT Hospitalist; ATTEND Hospitalist
PROC: 5A09357 Assistance with Respiratory Ventilation, Less than 24 Consecutive Hours, Continuous Positive Airway Pressure (ICD-10-PCS; principal; 2017-09-28)
DX: J96.91 Respiratory failure, unspecified with hypoxia (principal); J84.112 Idiopathic pulmonary fibrosis; E78.5 Hyperlipidemia, unspecified; F41.9 Anxiety disorder, unspecified; R82.99 Other abnormal findings in urine; Z87.891 Personal history of nicotine dependence
CPT/HCPCS: 36600; 71045; 80048; 80053; 81001; 82550; 82805; 82948; 83036; 83605; 83690; 84484; 85025; 85610; 85730; 87040; 87086; 87449; 87641; 87804; 93005; 94002; 94003; 94150; 94640; 94664; J0456; J0696; J1650; J1815; J2920; J2930; J3475; J7040; J7050; J7613

== ENCOUNTER 2017-10-31 23:48 | Inpatient (IN) ==
[2017-11-01] MEDS ORDERED: Succinylcholine Inj 200 MG/10 ML Vial ONE (00:27)
[2017-11-01] MEDS ORDERED: Etomidate Inj 20 MG/10 ML Ampul IV.PUSH ONE ×2 (00:27→02:16)
[2017-11-01] MEDS ORDERED: Lidocaine 2% 100 MG/5 ML Syringe ONE (00:27)
[2017-11-01] MEDS ORDERED: Propofol 1000 mg/100 ml Inj 1,000 MG/100 ML BOTTLE IV.CONT PRN (00:32)
[2017-11-01] MEDS ORDERED: MethylPREDNISolone Sod Succinate Inj 125 MG/2 ML Vial IV.PUSH ONE (00:38)
[2017-11-01] MEDS ORDERED: Sod Chloride 0.9% Inj 1,000 ML IV.SIG ONE ×2 (00:38→02:16)
[2017-11-01] MEDS ORDERED: Midazolam Inj 5 MG/ML 1 ML Vial IV.PUSH ONE (00:40)
[2017-11-01] MEDS ORDERED: Propofol 1000 mg/100 ml Inj 1,000 MG/100 ML BOTTLE ONE (00:42)
[2017-11-01 00:57] LABS: Baso # (Auto) 1.1 th/mm3 (0.0-0.2); Baso % (Auto) 3.1 % (0.0-2.0); Eos # (Auto) 0.1 th/mm3 (0.0-0.4); Eos % (Auto) 0.2 % (0.0-4.0); Hematocrit 45.9 % (35.0-46.0); Hemoglobin 16.1 gm/dL (11.6-15.3); Lymph # (Auto) 2.4 th/mm3 (1.0-4.8); Lymph % (Auto) 6.5 % (9.0-44.0); Mean Corpuscular HGB Conc 35.2 % (32.0-36.0); Mean Corpuscular Hemoglobin 31.5 pg (27.0-34.0); Mean Corpuscular Volume 89.4 fL (80.0-100.0); Mean Platelet Volume 6.5 fL (7.0-11.0); Mono % (Auto) 2.7 % (0.0-8.0); Neut # (Auto) 32.5 th/mm3 (1.8-7.7); Neut % (Auto) 87.5 % (16.0-70.0); Platelet Count 274 th/mm3 (150-450); Red Blood Count 5.13 mil/mm3 (4.00-5.30); Red Cell Distribution Width 16.1 % (11.6-17.2); White Blood Count 37.1 th/mm3 (4.0-11.0)
[2017-11-01 01:04] LABS: Chloride 95 meq/L (98-107); Potassium 4.1 meq/L (3.5-5.1); Sodium 136 meq/L (136-145)
[2017-11-01 01:07] LABS: Calcium 8.7 mg/dL (8.5-10.1)
[2017-11-01 01:08] LABS: Albumin 3.3 g/dL (3.4-5.0); Anion Gap 10 meq/L (5-15); Blood Urea Nitrogen 23 mg/dL (7-18); Carbon Dioxide 31.1 meq/L (21.0-32.0); Glucose,Random 194 mg/dL (74-106); Magnesium 2.1 mg/dL (1.5-2.5)
[2017-11-01 01:11] LABS: Alanine Aminotransferase 27 U/L (10-53); Aspartate Aminotransferase 35 U/L (15-37); Glomerular Filtration Rate 55 mL/min (>89)
--- NOTE | 2017-11-01 01:11 | XR ---
EXAM DATE: 11/01/2017 12:58 AM EDT AGE/SEX: 72 years / Female INDICATIONS: Status post intubation. CLINICAL DATA: This is the patient's initial encounter. Patient reports that signs and symptoms have been present for 1 day and indicates a pain score of Nonresponsive. MEDICAL/SURGICAL HISTORY: Non-responsive. Non-responsive. COMPARISON: [facility], CHEST SINGLE AP, 09/28/2017. . FINDINGS: ETT approximately 1.5 cm above the arabella. Lungs are hypoaerated with chronic interstitial changes. S uperimposed airspace disease throughout the left lung most prominently in the left lower lung zone. C ardiomegaly saw contours are stable. Remainder of the exam is unchanged. CONCLUSION: 1. ETT 1.5 cm above the arabella. 2. Low lung volumes with chronic interstitial changes and superimposed airspace disease throughout t he left lung. Electronically signed by: Jeet Heard MD 11/01/2017 1:09 AM EDT
[2017-11-01] MEDS ORDERED: fentaNYL 10 mcg/mL Premix Drip 2,500 MCG/250 ML BAG IV.SIG PRN (01:12)
[2017-11-01] MEDS ORDERED: Midazolam 50 MG/50 ML Inj 50 MG/50 ML BAG IV.CONT PRN (01:12)
[2017-11-01 01:13] LABS: Total Protein 6.9 g/dL (6.4-8.2)
[2017-11-01 01:14] LABS: Alkaline Phosphatase 64 U/L (45-117)
[2017-11-01 01:16] LABS: Troponin I 0.45 ng/mL (0.02-0.05)
[2017-11-01] MEDS ORDERED: Piperacil/Tazo 3.375 GM Premix 50 ML IV.SIG ONE (01:25)
[2017-11-01 01:43] LABS: Creatine Kinase 71 U/L (26-192)
[2017-11-01 01:46] LABS: ABG Base Excess 4.2 mmol/L (-2-2); ABG PCO2 49 mmHg (38-42); ABG PO2 64 mmHg (61-120)
[2017-11-01] MEDS ORDERED: Vancomycin Inj 1 GM/200 ML PIGGYBACK IV.SIG SCH (02:00)
--- NOTE | 2017-11-01 02:12 | ED ---
HPI General Chief Complaint: Respiratory Symptoms Stated Complaint: Evac/Short of Breath x 2 hrs Time Seen by Provider: 11/01/17 00:38 Source: patient and EMS History of Present Illness Patient is a 72-year-old female with history of pulmonary fibrosis who follows with Dr. Wick in the office, presents the emergency room with EMS with complaints of shortness of breath. Patient reports that she uses 2- 4 L of [place] oxygen at all times due to her pulmonary fibrosis. Patient reports that she has been currently on a prednisone taper, reports that she felt well today. Reports that tonight, she began to feel shortness of breath. Reports that she could not catch her breath, her called their daughter who called EMS. When EMS arrived on scene, patient had a pulse ox of 45% on 4 L, patient adamantly refused intubation. Patient was alert and oriented 3, refused intubation as she was afraid that she would never be extubated. Upon arrival to the emergency room, patient was on a nonrebreather, patient was alert and oriented 3 and refused intubation. Her pulse ox was around 75%. Patient reports that she was recently admitted to the hospital in September with similar symptoms and was placed on BiPAP and was given steroids and got better. Reports that at that time her pulse ox was in the 40s as well. Patient reports that she has had a nonproductive cough today, denies any fevers or chills, denies any chest pain. Related Data Allergies Allergy/AdvReac Type Severity Reaction Status Date / Time doxycycline Allergy Unknown Verified 09/28/17 12:20 sulfamethoxazole Allergy Unknown Verified 09/28/17 12:20 trimethoprim Allergy Unknown Verified 09/28/17 12:20 Review of Systems Except as stated in HPI: all other systems reviewed are negative [facility] Medical History Medical History Anxiety (Acute) Hyperlipidemia (Acute) Hypoxia (Acute) Medical history unknown (Acute) Pulmonary fibrosis (Acute) Surgical history unknown (Acute) Surgical History Surgical History H/O breast surgery (Acute) Social History Social History Recent Travel in [facility] within the Last 8 Weeks: No Recent Out of Country Travel within the Last 8 Weeks: No Exam Narrative Exam Narrative: GENERAL: severe distress SKIN: Focused skin assessment warm/dry. HEAD: Atraumatic. Normocephalic. EYES: Pupils equal and round. No scleral icterus. No injection or drainage. ENT: No nasal bleeding or discharge. Mucous membranes pink and tachy. NECK: Trachea midline. No JVD. CARDIOVASCULAR: tachycardic, No murmur appreciated. RESPIRATORY: increased accessory muscle use. patient in respiratory distress GASTROINTESTINAL: Abdomen soft, non-tender, nondistended. Hepatic and splenic margins not palpable. MUSCULOSKELETAL: No obvious deformities. No clubbing. No cyanosis. No edema. NEUROLOGICAL: Awake and alert. No obvious cranial nerve deficits. Motor grossly within normal limits. Normal speech. PSYCHIATRIC: anxious mood and affect; insight and judgment normal. Procedures Central Line Placement Right Femoral: Time Out Performed: Yes Patient Placed on Monitor/Pulse Ox: Yes MD Prep: mask, gown and gloves Central Line Prep: Chlorhexidine scrub and sterile drapes applied Local anesthesia used: lidocaine 1% Amount of anesthesia used (mL): 6 Ultrasound Used for Placement: Yes Central Line Lumen Inserted: triple Post Procedure: sutured in place, good blood return, all ports aspirated, flushed, capped and sterile dressing applied Patient Tolerated Procedure: well Complications: none Intubation Time Out Performed: Yes Sedative: etomidate Mg Given: 20 Paralytic: succinylcholine Mg Given: 100 Laryngoscope: other (CMAC) ET Tube Size: 8 ET Tube Uncuffed: Yes Tube Secured Depth (cm): 24 Tube Secured Location: lips Tube Placement Confirmation: visualized tube passing through cords, equal breath sounds bilaterally, no breath sounds over epigastrium and confirmation by capnometry Patient Tolerated Procedure: well and no complications Intubation Complications: none Course Initial Documented Vital Signs Pulse Rate 120 H 10/31/17 23:48 Respiratory Rate 40 H 10/31/17 23:48 Pulse Oximetry 45 L 10/31/17 23:48 Last Documented Vital Signs Temperature 98.5 F 11/01/17 03:24 Pulse Rate 120 H 11/01/17 02:58 Respiratory Rate 28 H 11/01/17 02:58 Blood Pressure 131/74 11/01/17 02:58 Pulse Oximetry 73 L 11/01/17 03:15 Critical Care Time Critical Care Time: Yes Total Critical Care Time: 60 Attestation: Aggregate critical care time was 60 minutes. Time to perform other separately billable procedures was not included in the critical care time. My time did not include minutes spent treating any other patients simultaneously or on activities that did not directly contribute to the patient's treatment. The services I provided to this patient were to treat and/or prevent clinically significant deterioration that could result in: , decompensation, deterioration I provided critical care services requiring my management, as noted below: Chart data review, documentation time, medication orders and management, vital sign assessments/reviewing monitor data, ordering and reviewing lab tests, ordering and interpreting/reviewing x-rays and diagnostic studies, care of the patient and discussion of the patient with the admitting physicians. Medical Decision Making MDM Narrative Medical decision making narrative: During the course of the patients emergency department visit, the patients history, examination, and differential diagnosis were reviewed with the patient. The patient was placed on a monitor car operator with oximetry and frequent blood pressure monitoring. RN were unable to obtain IV access. The patient was initially provided iv solumedrol and IVF. Patient initially refused intubation, she is requesting trial for BiPAP and IV steroids. RNs were unable to obtain peripheral line, I attempted to obtain a peripheral line using ultrasound guidance with no avail. Emergent right femoral central venous access was obtained in the right groin using sterile technique. Patient could not tolerate the position for an IJ. After right sided femoral venous access was obtained, patient complains of continued shortness of breath, patient became scared and said that she could not breathe and requests intubation. Patient was then intubated using an 8.0 ETT. ABG was ordered after intubation, x-ray confirmed placement of the ET tube. OG was placed as well as lloyd catheter. Patient was pancultured, she was started on Zosyn as well as vancomycin as she did have a white blood cell count of 37.1 and a lactic acid of 3.[address] Hubbard who accepts pt to the ICU Lab Data Lab results reviewed: Yes I reviewed the patient's lab results. Result diagrams: 11/01/17 00:40 11/01/17 00:40 Lab Results 11/01/17 11/01/17 11/01/17 Range/Units 00:40 00:40 00:40 CBC w Diff Slide review pending WBC 37.1 H (4.0-11.0) th/mm3 RBC 5.13 (4.00-5.30) mil/mm3 Hgb 16.1 H (11.6-15.3) gm/dL Hct 45.9 (35.0-46.0) % MCV 89.4 (80.0-100.0) fL MCH 31.5 (27.0-34.0) pg MCHC 35.2 (32.0-36.0) % RDW 16.1 (11.6-17.2) % Plt Count 274 (150-450) th/mm3 MPV 6.5 L (7.0-11.0) fL Neut % (Auto) 87.5 H (16.0-70.0) % Lymph % (Auto) 6.5 L (9.0-44.0) % [place] % (Auto) 2.7 (0.0-8.0) % Eos % (Auto) 0.2 (0.0-4.0) % Baso % (Auto) 3.1 H (0.0-2.0) % Neut # (Auto) 32.5 H (1.8-7.7) th/mm3 Lymph # (Auto) 2.4 (1.0-4.8) th/mm3 [place] # (Auto) 1.0 H (0.0-0.9) th/mm3 Eos # (Auto) 0.1 (0.0-0.4) th/mm3 Baso # (Auto) 1.1 H (0.0-0.2) th/mm3 WBC Differential Manual diff final Seg Neuts % (Manual) 84 H (16-70) % Band Neuts % (Manual) 4 (0-6) % Lymphocytes % (Manual) 7 L (9-44) % Monocytes % (Manual) 4 (0-8) % Metamyelocytes % (Man) 1 (0-1) % Abs Neuts (Manual) 33.0 H (1.8-7.7) th/mm3 Differential Comment . Platelet Estimate Normal (Normal) Platelet Morphology Normal (Normal) RBC Morphology Normal (Normal) PT 10.8 (9.8-11.6) sec INR 1.1 Ratio APTT 19.6 L (24.3-30.1) sec Puncture Site Patient Temperature O2 Saturation (90-100) % ABG pH (7.380-7.420) ABG pCO2 (38-42) mmHg ABG pO2 (61-120) mmHg ABG HCO3 (22-26) mmol/L ABG O2 Content (12.0-20.0) Vol % ABG Base Excess (-2-2) mmol/L ABG Methemoglobin (0-2) % Aquiles Test Hemoglobin (12.0-16.0) G/DL Carboxyhemoglobin (0-4) % O2 Delivery Device Vent Setting Inspired O2 % Critical Value Sodium 136 (136-145) meq/L Potassium 4.1 (3.5-5.1) meq/L Chloride 95 L (98-107) meq/L Carbon Dioxide 31.1 (21.0-32.0) meq/L Anion Gap 10 (5-15) meq/L BUN 23 H (7-18) mg/dL Creatinine 1.00 (0.50-1.00) mg/dL Estimated GFR 55 L (>89) mL/min Random Glucose 194 H (74-106) mg/dL Lactic Acid (0.4-2.0) mmol/L Calcium 8.7 (8.5-10.1) mg/dL Magnesium 2.1 (1.5-2.5) mg/dL Total Bilirubin 0.7 (0.2-1.0) mg/dL AST 35 (15-37) U/L ALT 27 (10-53) U/L Alkaline Phosphatase 64 (45-117) U/L Total Creatine Kinase 71 (26-192) U/L Troponin I 0.45 H (0.02-0.05) ng/mL Total Protein 6.9 (6.4-8.2) g/dL Albumin 3.3 L (3.4-5.0) g/dL 11/01/17 11/01/17 Range/Units 00:40 01:35 CBC w Diff WBC (4.0-11.0) th/mm3 RBC (4.00-5.30) mil/mm3 Hgb (11.6-15.3) gm/dL Hct (35.0-46.0) % MCV (80.0-100.0) fL MCH (27.0-34.0) pg MCHC (32.0-36.0) % RDW (11.6-17.2) % Plt Count (150-450) th/mm3 MPV (7.0-11.0) fL Neut % (Auto) (16.0-70.0) % Lymph % (Auto) (9.0-44.0) % [place] % (Auto) (0.0-8.0) % Eos % (Auto) (0.0-4.0) % Baso % (Auto) (0.0-2.0) % Neut # (Auto) (1.8-7.7) th/mm3 Lymph # (Auto) (1.0-4.8) th/mm3 [place] # (Auto) (0.0-0.9) th/mm3 Eos # (Auto) (0.0-0.4) th/mm3 Baso # (Auto) (0.0-0.2) th/mm3 WBC Differential Seg Neuts % (Manual) (16-70) % Band Neuts % (Manual) (0-6) % Lymphocytes % (Manual) (9-44) % Monocytes % (Manual) (0-8) % Metamyelocytes % (Man) (0-1) % Abs Neuts (Manual) (1.8-7.7) th/mm3 Differential Comment Platelet Estimate (Normal) Platelet Morphology (Normal) RBC Morphology (Normal) PT (9.8-11.6) sec INR Ratio APTT (24.3-30.1) sec Puncture Site Left brachial Patient Temperature 98.6 O2 Saturation 89 L* (90-100) % ABG pH 7.39 (7.380-7.420) ABG pCO2 49 H (38-42) mmHg ABG pO2 64 (61-120) mmHg ABG HCO3 29 H (22-26) mmol/L ABG O2 Content 18.7 (12.0-20.0) Vol % ABG Base Excess 4.2 H (-2-2) mmol/L ABG Methemoglobin 1.2 (0-2) % Aquiles Test Y Hemoglobin 14.9 (12.0-16.0) G/DL Carboxyhemoglobin 1.6 (0-4) % O2 Delivery Device Ventilator Vent Setting Prvc/ac Inspired O2 100 % Critical Value Yes Sodium (136-145) meq/L Potassium (3.5-5.1) meq/L Chloride (98-107) meq/L Carbon Dioxide (21.0-32.0) meq/L Anion Gap (5-15) meq/L BUN (7-18) mg/dL Creatinine (0.50-1.00) mg/dL Estimated GFR (>89) mL/min Random Glucose (74-106) mg/dL Lactic Acid 3.6 H (0.4-2.0) mmol/L Calcium (8.5-10.1) mg/dL Magnesium (1.5-2.5) mg/dL Total Bilirubin (0.2-1.0) mg/dL AST (15-37) U/L ALT (10-53) U/L Alkaline Phosphatase (45-117) U/L Total Creatine Kinase (26-192) U/L Troponin I (0.02-0.05) ng/mL Total Protein (6.4-8.2) g/dL Albumin (3.4-5.0) g/dL Imaging Data Attestation: I personally reviewed and interpreted this imaging study as follows : Radiologist's impression: ITS Impressions Chest X-Ray 11/01/17 00:33 CONCLUSION: 1. ETT 1.5 cm above the arabella. 2. Low lung volumes with chronic interstitial changes and superimposed airspace disease throughout the left lung. Discharge Plan Discharge Disposition Patient Disposition: 30 Still Patient Physicians Team ED Provider: Charlene Aceves Primary Care Provider: Do Rebecca Byers Attending Provider: Lyle Molina Other Providers: Hema Wick ; Augie Aceves Discharge Interventions Interventions: Vital Signs Last Done: 11/01/17 03:30 Status ED Status: Admitted Patient
[2017-11-01] MEDS ORDERED: Succinylcholine Inj 100 MG/5 ML Syringe IV.PUSH ONE (02:16)
[2017-11-01] MEDS ORDERED: Potassium Phosphate Inj 30 MMOL in Sodium Chlor 0.9% Inj 250 ML IV.SIG PRN (02:21)
[2017-11-01] MEDS ORDERED: Magnesium Sulfate Inj 2 GM in Sodium Chlor 0.9% Inj 96 ML IV.SIG PRN (02:21)
[2017-11-01] MEDS ORDERED: Bisacodyl 10 MG Supp RECTAL PRN (02:21)
[2017-11-01] MEDS ORDERED: Potassium Chloride 25 MEQ Effervescent Tablet PO PRN (02:21)
[2017-11-01] MEDS ORDERED: Potassium Chlor 40 mEq Premix 40 MEQ/100 ML PIGGYBACK IV.SIG PRN ×2 (02:21)
[2017-11-01] MEDS ORDERED: Magnesium Sulfate Inj 4 GM in Sodium Chlor 0.9% Inj 92 ML IV.SIG PRN (02:21)
[2017-11-01] MEDS ORDERED: Acetaminophen 325 MG Tablet PO PRN (02:21)
[2017-11-01] MEDS ORDERED: Magnesium Oxide 400 MG Tablet PO PRN (02:21)
[2017-11-01] MEDS ORDERED: Potassium Phosphate 500 MG Soluble Tablet PO PRN ×2 (02:21)
[2017-11-01] MEDS ORDERED: Sodium Phosphate Inj 30 MMOL in Sodium Chlor 0.9% Inj 250 ML IV.SIG PRN (02:21)
[2017-11-01] MEDS ORDERED: Potassium Chlor 20 mEq Premix 20 MEQ/100 ML PIGGYBACK IV.SIG PRN ×2 (02:21)
[2017-11-01 02:23] LABS: Activated Partial Thrombo Time 19.6 sec (24.3-30.1); INR 1.1 Ratio; Prothrombin Time 10.8 sec (9.8-11.6)
[2017-11-01] MEDS ORDERED: Enoxaparin Inj 40 MG/0.4 ML Syringe SQ SCH (02:30)
[2017-11-01] MEDS ORDERED: Sod Chloride 0.9% Inj 1,000 ML IV.CONT SCH (02:30)
[2017-11-01 02:33] LABS: Lymphocytes 7 % (9-44); Metamyelocytes 1 % (0-1); Monocytes 4 % (0-8); RBC Morphology Normal (Normal)
[2017-11-01 02:34] LABS: Platelet Estimate Normal (Normal); Platelet Morphology Normal (Normal)
[2017-11-01] MEDS ORDERED: MethylPREDNISolone Sod Succinate Inj 40 MG/ML Vial IV.PUSH SCH (03:00)
[2017-11-01] MEDS ORDERED: Vancomycin Consult Pharmacy 1 EACH OTHER SCH (03:00)
[2017-11-01] MEDS ORDERED: fentaNYL Citrate Inj 100 MCG/2 ML Ampul IV.PUSH ONE ×2 (03:14→03:30)
[2017-11-01 03:41] LABS: Bilirubin,Urine Negative (Negative); Clarity,Urine Clear (Clear); Color,Urine Yellow (Yellw/Straw); Glucose,Urine (UA) Negative (Negative); Leukocyte Esterase,Urine Negative (Negative); Nitrite,Urine Negative (Negative); Specific Gravity,Urine 1.025 (1.002-1.035); Urobilinogen,Urine 0.2 mg/dL (Less than 2)
[2017-11-01 03:56] LABS: Amorphous Sediment,Urine Many /hpf
[2017-11-01 03:59] LABS: Mucus,Urine Moderate /lpf (Occasional)
[2017-11-01 04:00] LABS: Squamous Epithelial Cell,Urine 0-5 /hpf (0-5)
[2017-11-01] MEDS ORDERED: Chlorhexidine Gluconate 2% 1 Pack (2 Cloths) TOPICAL PRN (04:00)
[2017-11-01] MEDS ORDERED: Oral Hygiene Kit OROPHARYNG SCH (04:00)
[2017-11-01] MEDS ORDERED: Chlorhexidine Gluconate 2% 1 Pack (2 Cloths) TOPICAL SCH (04:00)
[2017-11-01 04:08] LABS: Baso # (Auto) 0.1 th/mm3 (0.0-0.2); Baso % (Auto) 0.2 % (0.0-2.0); Eos % (Auto) 0.1 % (0.0-4.0); Hematocrit 39.8 % (35.0-46.0); Hemoglobin 13.9 gm/dL (11.6-15.3); Lymph # (Auto) 0.7 th/mm3 (1.0-4.8); Lymph % (Auto) 2.2 % (9.0-44.0); Mean Corpuscular Hemoglobin 31.4 pg (27.0-34.0); Mean Corpuscular Volume 89.9 fL (80.0-100.0); Mean Platelet Volume 6.9 fL (7.0-11.0); Mono # (Auto) 0.8 th/mm3 (0.0-0.9); Mono % (Auto) 2.7 % (0.0-8.0); Neut # (Auto) 28.2 th/mm3 (1.8-7.7); Neut % (Auto) 94.8 % (16.0-70.0); Platelet Count 225 th/mm3 (150-450); Red Blood Count 4.43 mil/mm3 (4.00-5.30); Red Cell Distribution Width 16.4 % (11.6-17.2); White Blood Count 29.8 th/mm3 (4.0-11.0)
[2017-11-01 04:18] LABS: Chloride 101 meq/L (98-107); Potassium 3.5 meq/L (3.5-5.1); Sodium 137 meq/L (136-145)
[2017-11-01 04:33] LABS: ABG Base Excess 1.9 mmol/L (-2-2); ABG PCO2 51 mmHg (38-42); ABG PO2 39 mmHg (61-120)
[2017-11-01 04:35] LABS: Alanine Aminotransferase 24 U/L (10-53); Albumin 2.7 g/dL (3.4-5.0); Alkaline Phosphatase 60 U/L (45-117); Anion Gap 9 meq/L (5-15); Aspartate Aminotransferase 44 U/L (15-37); Blood Urea Nitrogen 22 mg/dL (7-18); Calcium 7.6 mg/dL (8.5-10.1); Carbon Dioxide 26.8 meq/L (21.0-32.0); Glomerular Filtration Rate 73 mL/min (>89); Glucose,Random 208 mg/dL (74-106); Total Protein 5.5 g/dL (6.4-8.2)
[2017-11-01] MEDS ORDERED: Norepinephrine Inj 4 MG in Sodium Chlor 0.9% Inj 246 ML IV.SIG PRN (04:44)
[2017-11-01] MEDS ORDERED: Sodium Chlor 0.9% Inj 0 ML, Epoprostenol (30,000/mL) Neb 100 ML NEB SCH ×2 (04:45)
[2017-11-01 05:13] LABS: Eosinophils 1 % (0-4); Lymphocytes 1 % (9-44); Metamyelocytes 1 % (0-1); Monocytes 5 % (0-8); Platelet Estimate Normal (Normal); Platelet Morphology Normal (Normal); RBC Morphology Normal (Normal)
[2017-11-01] MEDS ORDERED: EPOPROSTENOL NEB SCH ×2 (05:30)
[2017-11-01] MEDS ORDERED: SODIUM CHLOR 0.9% NEB SCH ×2 (05:30)
[2017-11-01] MEDS ORDERED: Piperacil/Tazo 4.5 GM Premix 4.5 GM/100 ML BAG IV.SIG SCH ×2 (06:00→09:00)
[2017-11-01] MEDS ORDERED: Azithromycin Inj 500 MG in Sodium Chlor 0.9% Inj 250 ML IV.SIG SCH (08:00)
[2017-11-01] MEDS ORDERED: Chlorhexidine 0.12% Oral Kit 15 ML UDC OROPHARYNG SCH (08:00)
[2017-11-01] MEDS: MethylPREDNISolone Sod Succinate Inj 40 MG/ML Vial IV.PUSH SCH ×2 (08:47→16:35)
[2017-11-01] MEDS ORDERED: Famotidine 20 MG Tablet PO SCH (09:00)
[2017-11-01] MEDS ORDERED: Famotidine PF Inj 20 MG/2 ML Vial IV.PUSH SCH (09:00)
[2017-11-01] MEDS ORDERED: Senna/Docusate Sodium 8.6/50 MG Tablet PO SCH (09:00)
--- NOTE | 2017-11-01 11:38 | P.HPCC ---
History of Present Illness Primary Care Physician: Do Rebecca Byers History of Present Illness: Patient is a 72-year-old female with history of pulmonary fibrosis who follows with Dr. Wick in the office, presented the emergency room on 10/31 with EMS with complaints of shortness of breath. Patient reported that she uses 2- 4 L of [place] oxygen at all times due to her pulmonary fibrosis. Her prednisone was being tapered. Last night she began to feel shortness of breath. Reports that she could not catch her breath, her called their daughter who called EMS. When EMS arrived on scene, patient had a pulse ox of 45% on 4 L, patient adamantly refused intubation. Patient was alert and oriented 3, refused intubation as she was afraid that she would never be extubated. Upon arrival to the emergency room, patient was on a nonrebreather, patient was alert and oriented 3 and refused intubation. Her pulse ox was around 75%. Patient reports that she was recently admitted to the hospital in September with similar symptoms and was placed on BiPAP and was given steroids and got better. Reports that at that time her pulse ox was in the 40s as well. Patient was intubated by ER physician and placed on mechanical ventilation. Dr. Hubbard accepted patient for admission to the ICU and placed admitting orders. Patient was kept in the ER at [facility] overnight. Her O2 sats were in the 70s for most of the night despite 100% FiO2 and PEEP +10. She was initiated on empiric antibiotic steroids and bronchodilators. This morning when I evaluated the patient on arrival she was still in the ER orally intubated on mechanical ventilation sedated with fentanyl. Her O2 sats were in the 70s on 100% FiO2 PEEP +10. I increased the PEEP to +15 with negligible improvement in O2 sats. Inpatient Certification: I certify that the inpatient services were ordered in accordance with Medicare regulations governing the order. This includes certification that hospital inpatient services are reasonable and necessary and in the case of services not specified as inpatient-only under 42 CFR 419.22(n), that they are appropriately provided as inpatient services in accordance to with the 2-midnight benchmark under 43 CFR 412.3(e) Estimated Total Length of Stay (Days): 7 Plans for Post Hospital Care: Not yet determined Review of Systems unobtainable due to endotracheal tube PMFSH - History History Provided By: Us Marketing Director / EMT - Medical History Medical History: Medical History (Last Updated 11/01/17 @ 03:31 by Charlene Aceves) Anxiety Hyperlipidemia Hypoxia Medical history unknown Pulmonary fibrosis Surgical history unknown - Surgical History Surgical History: Surgical History (Last Updated 11/01/17 @ 03:32 by Charlene Aceves) H/O breast surgery - Tobacco History Smoking Status: Unknown if ever smoked - Alcohol History How Often Do You Have a Drink Containing Alcohol: Unable to Obtain - Travel History Recent Travel in the [place] Within the Last 8 Weeks: No Recent Travel Out of the Country Within the Last 8 Weeks: No - Immunization History Tetanus Immunization: Unsure Hx Influenza Vaccine This Season: Unable to Assess Medications and Allergies Active Medications: Active Medications Acetaminophen (Tylenol) 650 mg PO Q6H PRN PRN Reason: PAIN 1-10 AND/OR FEVER >101F Al Hydroxide/Mg Hydroxide (Milk Of Magnbrandee Liq) 30 ml PO Q12H PRN PRN Reason: Mild Constipation Albuterol (Albuterol Neb (Prn)) 2.5 mg NEB Q2HR NEB PRN PRN Reason: SHORTNESS OF BREATH Albuterol (Duoneb Neb ([facility])) 1 ampul NEB Q4HR NEB [facility] Last Admin: 11/01/17 07:54 Dose: 1 ampul Bisacodyl (Dulcolax Supp) 10 mg RECTAL DAILY PRN PRN Reason: SEVERE CONSITIPATION Chlorhexidine Gluconate (Peridex 0.12% Oral Kit) 15 ml OROPHARYNG BID@0800, 2000 [facility] Last Admin: 11/01/17 08:48 Dose: 15 ml Chlorhexidine Gluconate (Chlorhexidine 2% Cloth) 3 pack TOPICAL DAILY@0400 [facility] Stop: 11/06/17 03:59 Last Admin: 11/01/17 09:13 Dose: Not Given Chlorhexidine Gluconate (Chlorhexidine 2% Cloth) 3 pack TOPICAL DAILY@0400 PRN PRN Reason: Extra cloth needed Stop: 11/06/17 03:59 Sodium Chloride 37.5 ml/ (Epoprostenol Sodium 62.5 ml) 0 ml NEB CONT GOVIND Enoxaparin Sodium (Lovenox Inj) 40 mg SQ Q24H [facility] Last Admin: 11/01/17 03:45 Dose: 40 mg Famotidine (Pepcid) 20 mg PO BID [facility] Last Admin: 11/01/17 08:48 Dose: Not Given Famotidine (Pepcid Pf Inj) 20 mg IV.PUSH Q12HR [facility] Last Admin: 11/01/17 08:48 Dose: 20 mg Midazolam HCl (Versed Inj) 50 mg in 50 mls @ 2 mls/hr IV.CONT TITRATE PRN; Protocol PRN Reason: Per Protocol Last Titration: 11/01/17 04:45 Dose: 4 mg/hr, 4 mls/hr Fentanyl (Fentanyl 10 Mcg/Ml Premix Drip) 2,500 mcg in 250 mls @ 5 mls/hr IV.SIG TITRATE PRN; Protocol PRN Reason: Per Protocol Last Admin: 11/01/17 01:47 Dose: 50 mcg/hr, 5 mls/hr Sodium Chloride (Ns Inj) 1,000 mls @ 75 mls/hr IV.CONT .[id number] [facility] Last Admin: 11/01/17 05:44 Dose: 75 mls/hr Potassium Chloride (Kcl 40 Meq Premix Inj) 40 meq in 100 mls @ 25 mls/hr IV.SIG Q2H PRN PRN Reason: For Potassium 2.8 - 3.2 mEq/L Potassium Chloride (Kcl 20 Meq Premix Inj) 20 meq in 100 mls @ 50 mls/hr IV.SIG Q2H PRN PRN Reason: For Potassium 3.3 - 3.5 mEq/L Potassium Chloride (Kcl 40 Meq Premix Inj) 40 meq in 100 mls @ 25 mls/hr IV.SIG UNSCH PRN PRN Reason: For Potassium 3.3 - 3.5 mEq/L Sodium Phosphate 30 mmol/ (Sodium Chloride) 260 mls @ 42 mls/hr IV.SIG UNSCH PRN PRN Reason: For Phosphorus < 2.5 mg/dL Potassium Phosphate 30 mmol/ (Sodium Chloride) 260 mls @ 42 mls/hr IV.SIG UNSCH PRN PRN Reason: SEE LABEL COMMENTS Magnesium Sulfate Inj 4 gm/ (Sodium Chloride) 100 mls @ 50 mls/hr IV.SIG UNSCH PRN PRN Reason: For Magnesium 0.9 - 1.1 mg/dL Potassium Chloride (Kcl 20 Meq Premix Inj) 20 meq in 100 mls @ 50 mls/hr IV.SIG Q2H PRN PRN Reason: For Potassium 2.8 - 3.2 mEq/L Magnesium Sulfate Inj 2 gm/ (Sodium Chloride) 100 mls @ 50 mls/hr IV.SIG UNSCH PRN PRN Reason: For Magnesium 1.2 - 1.6 mg/dL Pharmacy Profile Note (Vancomycin Consult Pharmacy) 0 mls @ 0 mls/hr OTHER UNSCH GOVIND Norepinephrine Bitartrate 4 mg (/ Sodium Chloride) 250 mls @ 7.5 mls/hr IV.SIG TITRATE PRN; Protocol PRN Reason: Per Protocol Azithromycin 500 mg/ Sodium (Chloride) 250 mls @ 250 mls/hr IV.SIG Q24H [facility] Last Admin: 11/01/17 08:47 Dose: 250 mls/hr Piperacillin/Tazobactam/Dextrose (Zosyn 4.5 Gm Premix) 4.5 gm in 100 mls @ 200 mls/hr IV.SIG Q6H [facility] Last Admin: 11/01/17 08:59 Dose: 200 mls/hr Vancomycin HCl 1,250 mg/ (Sodium Chloride) 262.5 mls @ 262.5 mls/hr IV.SIG Q18H [facility] Lactulose (Lactulose Liq) 30 ml PO DAILY PRN PRN Reason: SEVERE CONSITIPATION Magnesium Oxide (Mag-Ox) 800 mg PO UNSCH PRN PRN Reason: For Magnesium 1.2 - 1.6 mg/dL Methylprednisolone Sodium Succinate (Solumedrol Inj) 60 mg IV.PUSH Q6H [facility] Last Admin: 11/01/17 08:47 Dose: 60 mg Miscellaneous Information ([facility] Ordered Lab Info) 0 each OTHER ONCE ONE Stop: 11/03/17 23:46 Potassium Bicarb/Potassium Chloride (K-Lyte Cl Eff) 50 meq PO UNSCH PRN PRN Reason: For Potassium 3.3 - 3.5 mEq/L Potassium Phosphate (K-Phos Original) 2,000 mg PO Q4H PRN PRN Reason: Phosphorus Less Than 2.5 mg/dL Potassium Phosphate (K-Phos Original) 2,000 mg PO UNSCH PRN PRN Reason: SEE LABEL COMMENTS Senna/Docusate Sodium (Elaine-Colace) 1 tab PO BID [facility] Last Admin: 11/01/17 08:49 Dose: 1 tab Sennosides (Senokot) 17.2 mg PO Q12H PRN PRN Reason: Moderate Constipation Sodium Chloride (Ns Flush) 2 ml IV.FLUSH BID GOVIND Last Admin: 11/01/17 08:48 Dose: 2 ml Sodium Chloride (Ns Flush) 2 ml IV.FLUSH PRN PRN PRN Reason: FLUSH AFTER USING IV ACCESS Terbutaline Sulfate (Brethine Inj) 1 mg SQ UNSCH PRN PRN Reason: For Extravasation Allergies Allergy/AdvReac Type Severity Reaction Status Date / Time doxycycline Allergy Unknown Verified 09/28/17 12:20 sulfamethoxazole Allergy Unknown Verified 09/28/17 12:20 trimethoprim Allergy Unknown Verified 09/28/17 12:20 Home Medications Medication Instructions Recorded Confirmed Type Acetaminophen PM 11/01/17 History Acetaminophen Pain Relief 11/01/17 History Allergy Relief (cetirizine) 5 11/01/17 History acetylcysteine [NAC] 600 mg PO DAILY 11/01/17 11/01/17 History calcium carb,xto-H3-vouojmjsvd 500 PO 11/01/17 History ipratropium bromide 0.025 mg/kg INHALATION Q8H 11/01/17 11/01/17 History melatonin 5 mg PO HS PRN MDD 5 mg 11/01/17 11/01/17 History vevpouzc-iyhz-onu-folic acid 1 tab PO DAILY 11/01/17 11/01/17 History [Centrum] simvastatin 10 mg PO QPM 11/01/17 11/01/17 History Results - Labs CBC & Chem 7: 11/01/17 03:45 11/01/17 03:45 Labs: Short CBC 11/01/17 11/01/17 Range/Units 00:40 03:45 WBC 37.1 H 29.8 H (4.0-11.0) th/mm3 Hgb 16.1 H 13.9 D (11.6-15.3) gm/dL Hct 45.9 39.8 (35.0-46.0) % Plt Count 274 225 (150-450) th/mm3 BMP 11/01/17 11/01/17 00:40 03:45 Sodium 136 137 Potassium 4.1 3.5 Chloride 95 L 101 Carbon Dioxide 31.1 26.8 BUN 23 H 22 H Creatinine 1.00 0.78 Calcium 8.7 7.6 L D Cardiac Enzymes 11/01/17 Range/Units 00:40 Total Creatine Kinase 71 (26-192) U/L Troponin I 0.45 H (0.02-0.05) ng/mL Liver Function 11/01/17 11/01/17 Range/Units 00:40 03:45 Total Bilirubin 0.7 1.4 H (0.2-1.0) mg/dL AST 35 44 H (15-37) U/L ALT 27 24 (10-53) U/L Alkaline Phosphatase 64 60 (45-117) U/L Albumin 3.3 L 2.7 L D (3.4-5.0) g/dL Urine 11/01/17 Range/Units 02:25 Urine Color Yellow (Yellw/Straw) Urine Clarity Clear (Clear) Urine pH 6.0 (5.0-8.5) Ur Specific [place] 1.025 (1.002-1.035) Urine Protein Trace (Neg-Trace) mg/dL Urine Glucose (UA) Negative (Negative) mg/dL - Imaging Impressions Chest X-Ray 11/01/17 00:33 CONCLUSION: 1. ETT 1.5 cm above the arabella. 2. Low lung volumes with chronic interstitial changes and superimposed airspace disease throughout the left lung. - ABG ABG results: 11/01/17 11/01/17 01:35 04:20 ABG pH 7.39 7.34 L ABG pCO2 49 H 51 H* ABG pO2 64 39 L* ABG HCO3 29 H 27 H ABG O2 Content 18.7 12.7 ABG Base Excess 4.2 H 1.9 ABG Methemoglobin 1.2 1.2 Exam Vital signs: Vital Signs 10/31/17 23:48 10/31/17 23:50 11/01/17 00:35 Temperature Pulse Rate 120 H 139 H Respiratory Rate 40 H 36 H Blood Pressure 162/84 H Pulse Oximetry 45 L 85 L 87 L 11/01/17 00:38 11/01/17 02:58 11/01/17 03:15 Temperature Pulse Rate 120 H 120 H Respiratory Rate 24 28 H Blood Pressure 153/93 H 131/74 Pulse Oximetry 73 L 73 L 11/01/17 03:24 11/01/17 03:30 11/01/17 03:40 Temperature 98.5 F Pulse Rate 117 H Respiratory Rate 33 H 37 H Blood Pressure 113/55 L 121/69 Pulse Oximetry 67 L 73 L 11/01/17 04:15 11/01/17 04:25 11/01/17 04:34 Temperature Pulse Rate 112 H 120 H 122 H Respiratory Rate 40 H 38 H 42 H Blood Pressure 80/43 L 95/52 L 119/58 L Pulse Oximetry 11/01/17 04:45 11/01/17 04:52 11/01/17 05:04 Temperature Pulse Rate 119 H 117 H 124 H Respiratory Rate 33 H 33 H 21 Blood Pressure 119/74 106/73 Pulse Oximetry 68 L 73 L 11/01/17 05:59 11/01/17 06:23 11/01/17 07:30 Temperature Pulse Rate 114 H 117 H 112 H Respiratory Rate 28 H 30 H Blood Pressure 94/50 L 101/65 99/62 L Pulse Oximetry 82 L 75 L 73 L 11/01/17 07:43 11/01/17 07:45 11/01/17 07:46 Temperature 97.7 F Pulse Rate 88 110 H Respiratory Rate 32 H 31 H Blood Pressure 93/63 L 90/56 L Pulse Oximetry 75 L 77 L 11/01/17 07:53 11/01/17 08:00 11/01/17 08:10 Temperature Pulse Rate 108 H 110 H Respiratory Rate 30 H 33 H 30 H Blood Pressure 82/48 L 105/49 L Pulse Oximetry 78 L 80 L 77 L 11/01/17 08:15 11/01/17 08:30 11/01/17 08:45 Temperature Pulse Rate 108 H 108 H 110 H Respiratory Rate 29 H 29 H 28 H Blood Pressure 94/61 L 93/66 L 100/63 Pulse Oximetry 77 L 77 L 77 L 11/01/17 09:00 11/01/17 09:15 11/01/17 09:30 Temperature Pulse Rate 114 H 110 H 110 H Respiratory Rate 27 H 28 H 25 H Blood Pressure 95/63 L 98/59 L 102/57 L Pulse Oximetry 72 L 71 L 71 L 11/01/17 09:45 11/01/17 10:00 Temperature Pulse Rate 110 H 112 H Respiratory Rate 50 H 46 H Blood Pressure 93/60 L 104/69 Pulse Oximetry 81 L 73 L Intake & Output 10/31/17 11/01/17 11/01/17 18:59 06:59 18:59 Intake Total 2252.3 / 2252.3 0 / 0 Output Total 400 / 400 Balance 1852.3 / 1852.3 0 / 0 Weight 72.91 kg Intake: IV 2252.3 / 2252.3 Diprivan 1000 mg/100 ml Inj 1, 2.3 / 2.3 000 mg In 100 ml @ 5 MCG/KG/MIN 2.187 mls/hr IV.CONT TITRATE PRN Rx#:[id number] Zosyn 3.375 GM Premix 50 ML @ 50 / 50 100 mls/hr IV.SIG ONCE ONE Rx#: [id number] NS Inj 1,000 ML @ Wide Open IV. 1999 SIG BOLUS ONE Rx#:[id number] Vancomycin Inj 1 gm In 200 ml @ 200 / 200 200 mls/hr IV.SIG FORMULATION SCIENTIST GOVIND Rx#:[id number] Oral 0 / 0 Oral Supplement 0 / 0 Output: Urine Amount (Catheter) 400 / 400 Indwelling Urethral Catheter 400 / 400 Caprini VTE Risk Assessment Caprini VTE Risk Assessment: Moderate/High Risk (score >= 2) Caprini Risk Assessment Model: Point Value = 1 Point Value = 2 Point Value = 3 Point Value = 5 Age 41-60 Minor surgery BMI > 25 kg/m2 Swollen legs Varicose veins or History of unexplained or recurrent spontaneous Oral contraceptives or hormone replacement Sepsis (< 1 month) Serious lung disease, including pneumonia (< 1 month) Abnormal pulmonary function Acute myocardial infarction Congestive heart failure (< 1 month) History of inflammatory bowel disease Medical patient at bed rest Age 61-74 Arthroscopic surgery Major open surgery (> 45 min) Laparoscopic surgery (> 45 min) Malignancy Confined to bed (> 72 hours) Immobilizing plaster cast Central venous access Age >= 75 History of VTE Family history of VTE Factor V Leiden Prothrombin [id number] Lupus anticoagulant Anticardiolipin antibodies Elevated serum homocysteine Heparin-induced thrombocytopenia Other congenital or acquired thrombophilia Stroke (< 1 month) Elective arthroplasty Hip, pelvis, or leg fracture Acute spinal cord injury (< 1 month) Prophylaxis Regimen: Total Risk Factor Score Risk Level Prophylaxis Regimen 0-1 Low Early ambulation 2 Moderate Order ONE of the following: *Sequential Compression Device (SCD) *Heparin 5000 units SQ BID 3-4 Higher Order ONE of the following medications: *Heparin 5000 units SQ TID *Enoxaparin/Lovenox 40 mg SQ daily (WT < 150 kg, CrCl > 30 mL/min) *Enoxaparin/Lovenox 30 mg SQ daily (WT < 150 kg, CrCl > 10-29 mL/min) *Enoxaparin/Lovenox 30 mg SQ BID (WT < 150 kg, CrCl > 30 mL/min) AND/OR *Sequential Compression Device (SCD) 5 or more Highest Order ONE of the following medications: *Heparin 5000 units SQ TID (Preferred with Epidurals) *Enoxaparin/Lovenox 40 mg SQ daily (WT < 150 kg, CrCl > 30 mL/min) *Enoxaparin/Lovenox 30 mg SQ daily (WT < 150 kg, CrCl > 10-29 mL/min) *Enoxaparin/Lovenox 30 mg SQ BID (WT < 150 kg, CrCl > 30 mL/min) AND *Sequential Compression Device (SCD) Assessment and Plan - Assessment and Plan Plan: 72-year-old female with: Acute on chronic respiratory failure on mechanical ventilation End-stage pulmonary fibrosis Severe sepsis Possible pneumonia Hypotension Plan: Neuro: sedation with fentanyl as needed. Follow neuro status. Cardiovascular: IV hydration, Levophed for pressor support if needed. Pulmonary: Continue mechanical ventilation. PEEP increased to +15. Remains 100 % FiO2 with O2 sats in the 70s. Continue bronchodilators and IV steroids. Dr. Wick from pulmonary consulted. Prognosis appears poor. GI/liver: N.p.o. for now Renal/: IV hydration, strict intake output, monitor and replete electrolytes, follow BUN/creatinine ID: Continue empiric antibiotic coverage with IV Zosyn/vancomycin. Zithromax IV added. Follow-up cultures. Heme: Follow CBC Prophylaxis: Pepcid/SCDs/Lovenox Prognosis extremely poor. Condition critical. Patient unable to maintain O2 sats despite mechanical ventilation. Consulted palliative care to assist with deciding goals of therapy. Family subsequently made patient DNR status. Condition critical Time spent on critical care excluding procedures 70 minutes
--- NOTE | 2017-11-01 12:11 | P.CONPAL ---
Consult Service: Palliative Care Requesting Physician: Jason Santos Reason for Consult: a. To assist with evaluation and management of symptoms including:dyspnea, pain , anxiety b. To assist medical decision maker(s) with: better understanding of current medical conditions; weighing benefits/burdens of medical treatment options; making medical treatment decisions. Primary Care Provider: Do Rebecca Byers History of Present Illness History of Present Illness: Patient is a 72-year-old with a past medical history of pulmonary fibrosis (O2 dependent). Patient was seen in the hospital for dyspnea 3 weeks ago. She was able to be stabilized and was discharge and has been on tapered steroids. Per family she was doing relatively well and going to jainism, holding grandbaby until last night when patient had excessive dyspnea. Patient presented to the ER with EMS. When EMS had arrived patient's pulse ox was 45% on 4 L. Patient at that time refused intubation. When patient was in the ER patient was also on a nonrebreather: In the ER: Pulse is 120, respirations 40, O2 is 45% on nonrebreather and a flow rate of 15. * WBCs 37.1, hemoglobin 16.1, hematocrit 25.9, platelet is 274 * Sodium is 136, potassium 4.1, chloride is 95, bicarb is 31, BUNs 23, creatinine is 1.0 * AST is 35, ALT is 27, alk phos is 64, troponin I 0.45, albumin 3.3, lactic acid 3.6 * Patient subsequently was intubated by ER physician. PH is 7.39, PCO2 29, PO2 is 64, bicarb is 29 * Chest x-ray . ET tube is 1.5 cm above the arabella. Low lung volumes. Patient was accepted and transferred to ICU. Despite FiO2 of 100% and PEEP of 10, sats remain in the 70s. PEEP was increased to +15 and there has been negligible improvement. Patient still tachypneic and sats remain low. Search Marketing Coordinator saw and met with the family and they endorse a DNR status. Palliative care was consulted to review goals of care. On my visit patient is intubated and sedated. Patient is not able to quantify or characterize pain, dyspnea, or anxiety but there is grimacing, and accessory muscle use and is clearly uncomfortable. Patient remains tachypneic and sats remained poor and patient is declining/decompensating. Spoke with patient's spouse, daughter and son, grandson. They all know that patient is imminent and goals of care is on when family members arrive later on today they would like to transition to comfort measures only. I have offered compassionate extubation in the [facility] but they would like patient to stay in the ICU. Plan is to do compassionate extubation in the unit. They are amenable to comfort measures and comfort measures. I have discussed morphine, Ativan, and drips necessary to maintain comfort of dyspnea, anxiety, and pain. Family is also aware patient may decline and pass away prior to family members that we are waiting. Exhibits B and C has been completed. Function/Cognitive Trajectory: Patient had recent hospitalization. Patient is O2 dependent. Patient prior to hospitalization night was doing relatively well able to attend jainism, participate and be active. Declined it happened very suddenly Review of Systems Constitutional: Reports lack of energy, Denies anorexia, Denies body ache(s), Denies daytime sleepiness Eyes: Denies blind spots, Denies blurry vision Ears, Nose, Mouth, and Throat: Denies abnormal hearing, Denies bleeding gums, Denies bad breath, Denies dry mouth, Denies ear discharge Cardiovascular: Reports fast heart rate, Reports shortness of breath, Denies chest pain at rest, Denies generalized swelling Respiratory: Reports shortness of breath, Reports shortness of breath with activity, Denies change in phlegm color Gastrointestinal: Denies abdominal pain, Denies black, tarry stools, Denies bright, red blood in stools Genitourinary: Denies urinary incontinence, Denies urinary urgency Musculoskeletal: Denies abnormal walking, Denies back pain Neurologic: Denies abnormal hearing, Denies abnormal movements, Denies behavioral changes Psychiatric: Reports anxiety (associated with dyspnea and decompensation) [facility] - History History Provided By: Research Program Coordinator / EMT - Medical History Medical History: Medical History (Last Updated 11/01/17 @ 12:03 by Augie Aceves MD) Hypoxia (Acute) Hyperlipidemia (Acute) Pulmonary fibrosis (Acute) Anxiety Medical history unknown Surgical history unknown - Surgical History Surgical History: Surgical History (Last Updated 11/01/17 @ 03:32 by Charlene Aceves) H/O breast surgery - Family History Family History: Family History (Last Updated 11/01/17 @ 12:05 by Augie Aceves MD) Other Family history normal - Tobacco History Smoking Status: Former smoker (quit for years. use to smoke a few cigaretts per day. never around the hosue.) - Alcohol History How Often Do You Have a Drink Containing Alcohol: Never - Substance Use History Substance History: No History of Abuse - Travel History Recent Travel in the [place] Within the Last 8 Weeks: No Recent Travel Out of the Country Within the Last 8 Weeks: No - Immunization History Tetanus Immunization: Unsure Hx Influenza Vaccine This Season: Unable to Assess Medications and Allergies Active Medications: Active Medications Acetaminophen (Tylenol) 650 mg PO Q6H PRN PRN Reason: PAIN 1-10 AND/OR FEVER >101F Al Hydroxide/Mg Hydroxide (Milk Of Jeevan Liq) 30 ml PO Q12H PRN PRN Reason: Mild Constipation Albuterol (Albuterol Neb (Prn)) 2.5 mg NEB Q2HR NEB PRN PRN Reason: SHORTNESS OF BREATH Albuterol (Duoneb Neb (Case)) 1 ampul NEB Q4HR NEB [facility] Last Admin: 11/01/17 11:45 Dose: Not Given Bisacodyl (Dulcolax Supp) 10 mg RECTAL DAILY PRN PRN Reason: SEVERE CONSITIPATION Chlorhexidine Gluconate (Peridex 0.12% Oral Kit) 15 ml OROPHARYNG BID@0800, 2000 [facility] Last Admin: 11/01/17 08:48 Dose: 15 ml Chlorhexidine Gluconate (Chlorhexidine 2% Cloth) 3 pack TOPICAL DAILY@0400 [facility] Stop: 11/06/17 03:59 Last Admin: 11/01/17 09:13 Dose: Not Given Chlorhexidine Gluconate (Chlorhexidine 2% Cloth) 3 pack TOPICAL DAILY@0400 PRN PRN Reason: Extra cloth needed Stop: 11/06/17 03:59 Sodium Chloride 37.5 ml/ (Epoprostenol Sodium 62.5 ml) 0 ml NEB CONT [facility] Enoxaparin Sodium (Lovenox Inj) 40 mg SQ Q24H [facility] Last Admin: 11/01/17 03:45 Dose: 40 mg Famotidine (Pepcid) 20 mg PO BID [facility] Last Admin: 11/01/17 08:48 Dose: Not Given Famotidine (Pepcid Pf Inj) 20 mg IV.PUSH Q12HR [facility] Last Admin: 11/01/17 08:48 Dose: 20 mg Midazolam HCl (Versed Inj) 50 mg in 50 mls @ 2 mls/hr IV.CONT TITRATE PRN; Protocol PRN Reason: Per Protocol Last Titration: 11/01/17 04:45 Dose: 4 mg/hr, 4 mls/hr Fentanyl (Fentanyl 10 Mcg/Ml Premix Drip) 2,500 mcg in 250 mls @ 5 mls/hr IV.SIG TITRATE PRN; Protocol PRN Reason: Per Protocol Last Admin: 11/01/17 01:47 Dose: 50 mcg/hr, 5 mls/hr Sodium Chloride (Ns Inj) 1,000 mls @ 75 mls/hr IV.CONT .[id number] [facility] Last Admin: 11/01/17 05:44 Dose: 75 mls/hr Potassium Chloride (Kcl 40 Meq Premix Inj) 40 meq in 100 mls @ 25 mls/hr IV.SIG Q2H PRN PRN Reason: For Potassium 2.8 - 3.2 mEq/L Potassium Chloride (Kcl 20 Meq Premix Inj) 20 meq in 100 mls @ 50 mls/hr IV.SIG Q2H PRN PRN Reason: For Potassium 3.3 - 3.5 mEq/L Potassium Chloride (Kcl 40 Meq Premix Inj) 40 meq in 100 mls @ 25 mls/hr IV.SIG UNSCH PRN PRN Reason: For Potassium 3.3 - 3.5 mEq/L Sodium Phosphate 30 mmol/ (Sodium Chloride) 260 mls @ 42 mls/hr IV.SIG UNSCH PRN PRN Reason: For Phosphorus < 2.5 mg/dL Potassium Phosphate 30 mmol/ (Sodium Chloride) 260 mls @ 42 mls/hr IV.SIG UNSCH PRN PRN Reason: SEE LABEL COMMENTS Magnesium Sulfate Inj 4 gm/ (Sodium Chloride) 100 mls @ 50 mls/hr IV.SIG UNSCH PRN PRN Reason: For Magnesium 0.9 - 1.1 mg/dL Potassium Chloride (Kcl 20 Meq Premix Inj) 20 meq in 100 mls @ 50 mls/hr IV.SIG Q2H PRN PRN Reason: For Potassium 2.8 - 3.2 mEq/L Magnesium Sulfate Inj 2 gm/ (Sodium Chloride) 100 mls @ 50 mls/hr IV.SIG UNSCH PRN PRN Reason: For Magnesium 1.2 - 1.6 mg/dL Pharmacy Profile Note (Vancomycin Consult Pharmacy) 0 mls @ 0 mls/hr OTHER UNSCH CASE Norepinephrine Bitartrate 4 mg (/ Sodium Chloride) 250 mls @ 7.5 mls/hr IV.SIG TITRATE PRN; Protocol PRN Reason: Per Protocol Azithromycin 500 mg/ Sodium (Chloride) 250 mls @ 250 mls/hr IV.SIG Q24H [facility] Last Admin: 11/01/17 08:47 Dose: 250 mls/hr Piperacillin/Tazobactam/Dextrose (Zosyn 4.5 Gm Premix) 4.5 gm in 100 mls @ 200 mls/hr IV.SIG Q6H [facility] Last Admin: 11/01/17 08:59 Dose: 200 mls/hr Vancomycin HCl 1,250 mg/ (Sodium Chloride) 262.5 mls @ 262.5 mls/hr IV.SIG Q18H [facility] Lactulose (Lactulose Liq) 30 ml PO DAILY PRN PRN Reason: SEVERE CONSITIPATION Magnesium Oxide (Mag-Ox) 800 mg PO UNSCH PRN PRN Reason: For Magnesium 1.2 - 1.6 mg/dL Methylprednisolone Sodium Succinate (Solumedrol Inj) 60 mg IV.PUSH Q6H [facility] Last Admin: 11/01/17 08:47 Dose: 60 mg Miscellaneous Information ([facility] Ordered Lab Info) 0 each OTHER ONCE ONE Stop: 11/03/17 23:46 Potassium Bicarb/Potassium Chloride (K-Lyte Cl Eff) 50 meq PO UNSCH PRN PRN Reason: For Potassium 3.3 - 3.5 mEq/L Potassium Phosphate (K-Phos Original) 2,000 mg PO Q4H PRN PRN Reason: Phosphorus Less Than 2.5 mg/dL Potassium Phosphate (K-Phos Original) 2,000 mg PO UNSCH PRN PRN Reason: SEE LABEL COMMENTS Senna/Docusate Sodium (Elaine-Colace) 1 tab PO BID [facility] Last Admin: 11/01/17 08:49 Dose: 1 tab Sennosides (Senokot) 17.2 mg PO Q12H PRN PRN Reason: Moderate Constipation Sodium Chloride (Ns Flush) 2 ml IV.FLUSH BID [facility] Last Admin: 11/01/17 08:48 Dose: 2 ml Sodium Chloride (Ns Flush) 2 ml IV.FLUSH PRN PRN PRN Reason: FLUSH AFTER USING IV ACCESS Terbutaline Sulfate (Brethine Inj) 1 mg SQ UNSCH PRN PRN Reason: For Extravasation Allergies Allergy/AdvReac Type Severity Reaction Status Date / Time doxycycline Allergy Unknown Verified 09/28/17 12:20 sulfamethoxazole Allergy Unknown Verified 09/28/17 12:20 trimethoprim Allergy Unknown Verified 09/28/17 12:20 Home Medications Medication Instructions Recorded Confirmed Type Acetaminophen PM 11/01/17 History Acetaminophen Pain Relief 11/01/17 History Allergy Relief (cetirizine) 5 11/01/17 History acetylcysteine [NAC] 600 mg PO DAILY 11/01/17 11/01/17 History calcium carb,[id number] 500 PO 11/01/17 History ipratropium bromide 0.025 mg/kg INHALATION Q8H 11/01/17 11/01/17 History melatonin 5 mg PO HS PRN MDD 5 mg 11/01/17 11/01/17 History zyjsagzc-cwqb-wjy-folic acid 1 tab PO DAILY 11/01/17 11/01/17 History [Centrum] simvastatin 10 mg PO QPM 11/01/17 11/01/17 History Advance Directives Living Will: No Healthcare Surrogate: No Power of Radio/Tv Technician: No Physical Exam Vital Signs: Vital Signs - 24 hr 10/31/17 23:48 10/31/17 23:50 11/01/17 00:35 Temperature Pulse Rate 120 H 139 H Respiratory Rate 40 H 36 H Blood Pressure 162/84 H Pulse Oximetry 45 L 85 L 87 L 11/01/17 00:38 11/01/17 02:58 11/01/17 03:15 Temperature Pulse Rate 120 H 120 H Respiratory Rate 24 28 H Blood Pressure 153/93 H 131/74 Pulse Oximetry 73 L 73 L 11/01/17 03:24 11/01/17 03:30 11/01/17 03:40 Temperature 98.5 F Pulse Rate 117 H Respiratory Rate 33 H 37 H Blood Pressure 113/55 L 121/69 Pulse Oximetry 67 L 73 L 11/01/17 04:15 11/01/17 04:25 11/01/17 04:34 Temperature Pulse Rate 112 H 120 H 122 H Respiratory Rate 40 H 38 H 42 H Blood Pressure 80/43 L 95/52 L 119/58 L Pulse Oximetry 11/01/17 04:45 11/01/17 04:52 11/01/17 05:04 Temperature Pulse Rate 119 H 117 H 124 H Respiratory Rate 33 H 33 H 21 Blood Pressure 119/74 106/73 Pulse Oximetry 68 L 73 L 11/01/17 05:59 11/01/17 06:23 11/01/17 07:30 Temperature Pulse Rate 114 H 117 H 112 H Respiratory Rate 28 H 30 H Blood Pressure 94/50 L 101/65 99/62 L Pulse Oximetry 82 L 75 L 73 L 11/01/17 07:43 11/01/17 07:45 11/01/17 07:46 Temperature 97.7 F Pulse Rate 88 110 H Respiratory Rate 32 H 31 H Blood Pressure 93/63 L 90/56 L Pulse Oximetry 75 L 77 L 11/01/17 07:53 11/01/17 08:00 11/01/17 08:10 Temperature Pulse Rate 108 H 110 H Respiratory Rate 30 H 33 H 30 H Blood Pressure 82/48 L 105/49 L Pulse Oximetry 78 L 80 L 77 L 11/01/17 08:15 11/01/17 08:30 11/01/17 08:45 Temperature Pulse Rate 108 H 108 H 110 H Respiratory Rate 29 H 29 H 28 H Blood Pressure 94/61 L 93/66 L 100/63 Pulse Oximetry 77 L 77 L 77 L 11/01/17 09:00 11/01/17 09:15 11/01/17 09:30 Temperature Pulse Rate 114 H 110 H 110 H Respiratory Rate 27 H 28 H 25 H Blood Pressure 95/63 L 98/59 L 102/57 L Pulse Oximetry 72 L 71 L 71 L 11/01/17 09:45 11/01/17 10:00 11/01/17 11:39 Temperature Pulse Rate 110 H 112 H Respiratory Rate 50 H 46 H Blood Pressure 93/60 L 104/69 Pulse Oximetry 81 L 73 L 77 L I&O: Intake & Output 10/30/17 10/31/17 11/01/17 11/02/17 06:59 06:59 06:59 06:59 Intake Total 2252.3 / 2252.3 0 / 0 Output Total 400 / 400 Balance 1852.3 / 1852.3 0 / 0 Weight 72.91 kg Physical Exam: CONSTITUTIONAL/GENERAL: This is a 72 year old lady, intubated, tachypneic. TUBES/LINES/DRAINS:ET tube lloyd SKIN: No jaundice, rashes, or lesions. No wounds seen anteriorly. HEAD: Atraumatic. Normocephalic. EYES: Pupils equal and round and reactive. No scleral icterus. No injection or drainage. Fundi not examined. ENT: Nose without bleeding or purulent drainage. Throat ET tube in place, accesory muscle use NECK: Trachea midline. Supple, nontender. No palpable thyroid enlargement or nodularity. CARDIOVASCULAR: Regular rate and rhythm without murmurs, gallops, or rubs. No JVD. Peripheral pulses symmetric. RESPIRATORY/CHEST: Decrease breath sound bilaterally, abdominal breathing tachpneic GASTROINTESTINAL: Abdomen soft, non-tender, nondistended. No hepato-splenomegaly , or palpable masses. No guarding. Bowel sounds present. GENITOURINARY: Without palpable bladder distension. Lloyd catheter in place. MUSCULOSKELETAL: Extremities without clubbing, cyanosis, or edema. NEUROLOGICAL: Intubated, sedated. Moves all extremities. PSYCHIATRIC: could not elicit due to level of conciousness. Diagnostic Tests Laboratory: Laboratory Results - last 72 hr 11/01/17 11/01/17 11/01/17 00:40 00:40 00:40 CBC w Diff Slide review pending WBC 37.1 H RBC 5.13 Hgb 16.1 H Hct 45.9 MCV 89.4 MCH 31.5 MCHC 35.2 RDW 16.1 Plt Count 274 MPV 6.5 L Neut % (Auto) 87.5 H Lymph % (Auto) 6.5 L [place] % (Auto) 2.7 Eos % (Auto) 0.2 Baso % (Auto) 3.1 H Neut # (Auto) 32.5 H Lymph # (Auto) 2.4 [place] # (Auto) 1.0 H Eos # (Auto) 0.1 Baso # (Auto) 1.1 H WBC Differential Manual diff final Seg Neuts % (Manual) 84 H Band Neuts % (Manual) 4 Lymphocytes % (Manual) 7 L Monocytes % (Manual) 4 Eosinophils % (Manual) Metamyelocytes % (Man) 1 Abs Neuts (Manual) 33.0 H Differential Comment . Platelet Estimate Normal Platelet Morphology Normal RBC Morphology Normal PT 10.8 INR 1.1 APTT 19.6 L Puncture Site Patient Temperature O2 Saturation ABG pH ABG pCO2 ABG pO2 ABG HCO3 ABG O2 Content ABG Base Excess ABG Methemoglobin Aquiles Test Hemoglobin Carboxyhemoglobin O2 Delivery Device Vent Setting Inspired O2 Critical Value Sodium 136 Potassium 4.1 Chloride 95 L Carbon Dioxide 31.1 Anion Gap 10 BUN 23 H Creatinine 1.00 Estimated GFR 55 L POC Glucose Random Glucose 194 H Lactic Acid Calcium 8.7 Magnesium 2.1 Total Bilirubin 0.7 AST 35 ALT 27 Alkaline Phosphatase 64 Total Creatine Kinase 71 Troponin I 0.45 H Total Protein 6.9 Albumin 3.3 L Urine Color Urine Clarity Urine pH Ur Specific [place] Urine Protein Urine Glucose (UA) Urine Ketones Urine Occult Blood Urine Nitrate Urine Bilirubin Urine Urobilinogen Ur Leukocyte Esterase Urine RBC Urine WBC Ur Squamous Epith Cells Amorphous Sediment Hyaline Casts Granular Casts RBC Casts WBC Casts Urine Mucus Micro UA Comment Urine Culture Comments 11/01/17 11/01/17 11/01/17 00:40 01:35 02:25 CBC w Diff WBC RBC Hgb Hct MCV MCH MCHC RDW Plt Count MPV Neut % (Auto) Lymph % (Auto) [place] % (Auto) Eos % (Auto) Baso % (Auto) Neut # (Auto) Lymph # (Auto) [place] # (Auto) Eos # (Auto) Baso # (Auto) WBC Differential Seg Neuts % (Manual) Band Neuts % (Manual) Lymphocytes % (Manual) Monocytes % (Manual) Eosinophils % (Manual) Metamyelocytes % (Man) Abs Neuts (Manual) Differential Comment Platelet Estimate Platelet Morphology RBC Morphology PT INR APTT Puncture Site Left brachial Patient Temperature 98.6 O2 Saturation 89 L* ABG pH 7.39 ABG pCO2 49 H ABG pO2 64 ABG HCO3 29 H ABG O2 Content 18.7 ABG Base Excess 4.2 H ABG Methemoglobin 1.2 Aquiles Test Y Hemoglobin 14.9 Carboxyhemoglobin 1.6 O2 Delivery Device Ventilator Vent Setting Prvc/ac Inspired O2 100 Critical Value Yes Sodium Potassium Chloride Carbon Dioxide Anion Gap BUN Creatinine Estimated GFR POC Glucose Random Glucose Lactic Acid 3.6 H Calcium Magnesium Total Bilirubin AST ALT Alkaline Phosphatase Total Creatine Kinase Troponin I Total Protein Albumin Urine Color Yellow Urine Clarity Clear Urine pH 6.0 Ur Specific [place] 1.025 Urine Protein Trace Urine Glucose (UA) Negative Urine Ketones Negative Urine Occult Blood Large H Urine Nitrate Negative Urine Bilirubin Negative Urine Urobilinogen 0.2 Ur Leukocyte Esterase Negative Urine RBC 4-15 H Urine WBC 5-8 H Ur Squamous Epith Cells 0-5 Amorphous Sediment Many H Hyaline Casts 4-10 H Granular Casts 4-10 H RBC Casts 1-3 H WBC Casts 1-3 H Urine Mucus Moderate H Micro UA Comment Cath-culture ind Urine Culture Comments Cath-cult indicated 11/01/17 11/01/17 11/01/17 03:10 03:45 03:45 CBC w Diff Slide review pending WBC 29.8 H RBC 4.43 Hgb 13.9 D Hct 39.8 MCV 89.9 MCH 31.4 MCHC 35.0 RDW 16.4 Plt Count 225 MPV 6.9 L Neut % (Auto) 94.8 H Lymph % (Auto) 2.2 L [place] % (Auto) 2.7 Eos % (Auto) 0.1 Baso % (Auto) 0.2 Neut # (Auto) 28.2 H Lymph # (Auto) 0.7 L [place] # (Auto) 0.8 Eos # (Auto) 0.0 Baso # (Auto) 0.1 WBC Differential Manual diff final Seg Neuts % (Manual) 78 H Band Neuts % (Manual) 14 H Lymphocytes % (Manual) 1 L Monocytes % (Manual) 5 Eosinophils % (Manual) 1 Metamyelocytes % (Man) 1 Abs Neuts (Manual) 27.7 H Differential Comment . Platelet Estimate Normal Platelet Morphology Normal RBC Morphology Normal PT INR APTT Puncture Site Patient Temperature O2 Saturation ABG pH ABG pCO2 ABG pO2 ABG HCO3 ABG O2 Content ABG Base Excess ABG Methemoglobin Aquiles Test Hemoglobin Carboxyhemoglobin O2 Delivery Device Vent Setting Inspired O2 Critical Value Sodium 137 Potassium 3.5 Chloride 101 Carbon Dioxide 26.8 Anion Gap 9 BUN 22 H Creatinine 0.78 Estimated GFR 73 L POC Glucose Random Glucose 208 H Lactic Acid 3.1 H Calcium 7.6 L D Magnesium Total Bilirubin 1.4 H AST 44 H ALT 24 Alkaline Phosphatase 60 Total Creatine Kinase Troponin I Total Protein 5.5 L D Albumin 2.7 L D Urine Color Urine Clarity Urine pH Ur Specific [place] Urine Protein Urine Glucose (UA) Urine Ketones Urine Occult Blood Urine Nitrate Urine Bilirubin Urine Urobilinogen Ur Leukocyte Esterase Urine RBC Urine WBC Ur Squamous Epith Cells Amorphous Sediment Hyaline Casts Granular Casts RBC Casts WBC Casts Urine Mucus Micro UA Comment Urine Culture Comments 11/01/17 11/01/17 04:20 08:27 CBC w Diff WBC RBC Hgb Hct MCV MCH MCHC RDW Plt Count MPV Neut % (Auto) Lymph % (Auto) [place] % (Auto) Eos % (Auto) Baso % (Auto) Neut # (Auto) Lymph # (Auto) [place] # (Auto) Eos # (Auto) Baso # (Auto) WBC Differential Seg Neuts % (Manual) Band Neuts % (Manual) Lymphocytes % (Manual) Monocytes % (Manual) Eosinophils % (Manual) Metamyelocytes % (Man) Abs Neuts (Manual) Differential Comment Platelet Estimate Platelet Morphology RBC Morphology PT INR APTT Puncture Site Left brachial Patient Temperature 98.6 O2 Saturation 66 L* ABG pH 7.34 L ABG pCO2 51 H* ABG pO2 39 L* ABG HCO3 27 H ABG O2 Content 12.7 ABG Base Excess 1.9 ABG Methemoglobin 1.2 Aquiles Test Y Hemoglobin 13.8 Carboxyhemoglobin 1.4 O2 Delivery Device Ventilator Vent Setting Prvc/ac Inspired O2 100 Critical Value Yes Sodium Potassium Chloride Carbon Dioxide Anion Gap BUN Creatinine Estimated GFR POC Glucose 215 H Random Glucose Lactic Acid Calcium Magnesium Total Bilirubin AST ALT Alkaline Phosphatase Total Creatine Kinase Troponin I Total Protein Albumin Urine Color Urine Clarity Urine pH Ur Specific [place] Urine Protein Urine Glucose (UA) Urine Ketones Urine Occult Blood Urine Nitrate Urine Bilirubin Urine Urobilinogen Ur Leukocyte Esterase Urine RBC Urine WBC Ur Squamous Epith Cells Amorphous Sediment Hyaline Casts Granular Casts RBC Casts WBC Casts Urine Mucus Micro UA Comment Urine Culture Comments Result Diagrams: 11/01/17 03:45 11/01/17 03:45 Microbiology: Microbiology 11/01/17 09:00 Influenza Types A,B Antigen - Final Nasal Wash Negative for FLU A and B antigen Infection due to influenza A or B cannot be ruled out since the antigen present in the sample may be below the detection limit of the test. Imaging: ITS Impressions Chest X-Ray 11/01/17 00:33 CONCLUSION: 1. ETT 1.5 cm above the arabella. 2. Low lung volumes with chronic interstitial changes and superimposed airspace disease throughout the left lung. Patient/Family Conference Present at Family Conference: Pt's spouse, deandre, son, son in law, granddaughter. Family Conference Location: Bedside, Hallway Issues Discussed: * Palliative care role, purpose, approach * Additional medical, psychosocial, and spiritual history * Patients general health, functional status, and cognitive changes in the months leading up to the current hospitalization * Patient/family understanding of the current medical problems * Patient/family understanding of prognosis * Patients goals of care as best understood from advance directives and/or conversations and/or values * Current medical treatment options and benefits/burdens of those options * Likely scenarios comparing ongoing aggressive care with a transition to comfort measures only * Questions answered to the best of my ability * Palliative care contact information provided Assessment and Plan - Disease Oriented Problem List (1) Respiratory failure Comment: pulmonary fibrosis (2) Hypoxia Comment: pulmonary fibrosis. - Symptom Scale (1) Anxiety 0-10 Scale: Unable to quantify (2) Dyspnea 0-10 Scale: Unable to quantify (3) Pain 0-10 Scale: Unable to quantify Pertinent Non-Medical Issues: Psychosocial:, has 2 sons and a daughter. grandchildren. Spiritual:Yazidism Legal:No advance directive completed. Per [place], health care proxy is Pt 's spouse. Ethical issues impacting care:none. Important Contacts: Osito Morrow [phone]. . Chitra Marrero [phone]. Daughter. Prognosis: ES pulmonary fibrosis, despite ventalator, pt continue to decline. Code Status: No Code DNR Plan: == capacity- has not capacity to make medical decision, and will not regain capacity. == Health Care Proxy- is spouse Osito Morrow by [place]. No advance completed completed. == code: Reafirms DNR/DNI. == Goals of Care: On my visit patient is intubated and sedated. Patient is not able to quantify or characterize pain, dyspnea, or anxiety but there is grimacing, and accessory muscle use and is clearly uncomfortable. Patient remains tachypneic and sats remained poor and patient is declining/ decompensating. Spoke with patient's spouse, daughter and son, grandson. They all know that patient is imminent and goals of care is on when family members arrive later on today they would like to transition to comfort measures only. I have offered compassionate extubation in the [facility] but they would like patient to stay in the ICU. Plan is to do compassionate extubation in the unit when all family arrives today. Family is also aware patient may decline and pass away prior to family members that we are waiting. Exhibits B and C has been completed. == symptoms: pain debility, intubated dyspnea- 2nd to respiratory failure and pulmonary fibrosis. anxiety- associated with dyspnea. Vent withdrawal and subsequent symptms. They are amenable to comfort measures and comfort measures. I have discussed morphine, Ativan, and drips necessary to maintain comfort of dyspnea, anxiety, and pain. ==Palliative Care will follow up, managem symptoms, and review goals of care as clinical condition evolves. Appreciation Thank you for the opportunity to participate in the care of Chela Morrow.
[2017-11-01] MEDS ORDERED: Morphine Inj 4 MG/ML Vial IV.PUSH ONE ×2 (12:48→12:54)
[2017-11-01] MEDS ORDERED: Morphine Sulfate Inj 8 MG/ML Vial IV.PUSH ONE (12:48)
[2017-11-01] MEDS ORDERED: Morphine Sulfate Inj 8 MG/ML Vial IV.PUSH PRN (12:48)
[2017-11-01] MEDS ORDERED: Hyoscyamine Inj 0.5 MG/ML Ampul IV.PUSH PRN (12:48)
[2017-11-01] MEDS ORDERED: Morphine Inj 4 MG/ML Vial IV.PUSH PRN (12:48)
--- NOTE | 2017-11-01 13:11 | ECG ---
Date Performed: 11/01/2017 Time Performed: 02:17:48 PTAGE: 72 years EKG: SINUS TACHYCARDIA WITH OCCASIONAL VENTRICULAR PREMATURE COMPLEXES LOW QRS VOLTAGE IN PRECOR DIAL LEADS POSSIBLE RIGHT VENTRICULAR CONDUCTION DELAY POSSIBLE ANTERIOR MYOCARDIAL INFARCTION ST T C HANGE NOTED IN LEAD III Clinical correlation is recommended ABNORMAL ECG PREVIOUS TRACING : 11/01/2017 01.03 DOCTOR: Juice Medrano Interpretating Date/Time 11/01/2017 13:09:30
--- NOTE | 2017-11-01 13:11 | ECG ---
Date Performed: 11/01/2017 Time Performed: 05:03:19 PTAGE: 72 years EKG: SINUS TACHYCARDIA LOW QRS VOLTAGE IN PRECORDIAL LEADS INCOMPLETE RIGHT BUNDLE BRANCH BLOCK POSSIBLE ANTERIOR MYOCARDIAL INFARCTION PROBABLE INFERIOR MYOCARDIAL INFARCTION ABNORMAL ECG POSSIBLE INOCCURING INFERIOR WALL MYOCARDIAL INFARCTION CONTINUE CLINICAL CORRELATION STRONGLY RECOMMENDED PREVIOUS TRACING : 11/01/2017 02.17 DOCTOR: Juice Medrano Interpretating Date/Time 11/01/2017 13:11:23
--- NOTE | 2017-11-01 13:21 | ECG ---
Date Performed: 11/01/2017 Time Performed: 01:03:52 PTAGE: 72 years EKG: SINUS TACHYCARDIA LOW QRS VOLTAGE IN PRECORDIAL LEADS POSSIBLE RIGHT VENTRICULAR CONDUCTION DELAY POSSIBLE ANTERIOR MYOCARDIAL INFARCTION ABNORMAL ECG Since the PREVIOUS TRACING , no significant change noted PREVIOUS TRACIN09/28/2017 12.18 DOCTOR: Juice Medrano Interpretating Date/Time 11/01/2017 13:16:28
[2017-11-01] MEDS ORDERED: Vancomycin Inj 1,250 MG in Sodium Chlor 0.9% Inj 250 ML IV.SIG SCH (18:00)
[2017-11-03] MEDS ORDERED: VANCOMYCIN TROUGH OTHER ONE (23:45)
--- NOTE | 2017-11-18 07:01 | P.DN ---
Discharge Sum: Prov - Provider Primary care physician: Do Rebecca Byers Admitting clinician: Jason Santos Attending physician on admission: Jason Santos Consults: 11/01/17 02:21 Consult to Palliative Care Routine Consulting Provider: Augie Aceves Reason for Consultation: end-stage pulmonary fibrosis Notified:: Service Spoke with:: AMAYA Date Notified:: 11/01/17 Time Notified:: 03:01 Comments:: [id number] JOEL WILL CALL BACK Ordering Provider: MURPHY Consult to Pulmonology Routine Consulting Provider: Hema Wick Patient known to:: Hema Wick Reason for Consultation: end-stage pulmonary fibrosis Notified:: Service Spoke with:: YAO Date Notified:: 11/01/17 Time Notified:: 02:52 Ordering Provider: MURPHY Pronouncing clinician: Jason Santos Discharge Sum: Diag - PCOD Cause of : Cardiac arrest Discharge Sum: Summary - Date and Time Date of admission: 11/01/17 02:21 Date of : 11/01/17 Time of : 17:32 - Summary Details: Patient is a 72-year-old female with history of pulmonary fibrosis who follows with Dr. Wick in the office, presented the emergency room on 10/31 with EMS with complaints of shortness of breath. Patient reported that she uses 2- 4 L of [place] oxygen at all times due to her pulmonary fibrosis. Her prednisone was being tapered. Last night she began to feel shortness of breath. Reports that she could not catch her breath, her called their daughter who called EMS. When EMS arrived on scene, patient had a pulse ox of 45% on 4 L, patient adamantly refused intubation. Patient was alert and oriented 3, refused intubation as she was afraid that she would never be extubated. Upon arrival to the emergency room, patient was on a nonrebreather, patient was alert and oriented 3 and refused intubation. Her pulse ox was around 75%. Patient reports that she was recently admitted to the hospital in September with similar symptoms and was placed on BiPAP and was given steroids and got better. Reports that at that time her pulse ox was in the 40s as well. Patient was intubated by ER physician and placed on mechanical ventilation. Dr. Hubbard accepted patient for admission to the ICU and placed admitting orders. Patient was kept in the ER at [facility] overnight. Her O2 sats were in the 70s for most of the night despite 100% FiO2 and PEEP +10. She was initiated on empiric antibiotic steroids and bronchodilators. This morning when I evaluated the patient on arrival she was still in the ER orally intubated on mechanical ventilation sedated with fentanyl. Her O2 sats were in the 70s on 100% FiO2 PEEP +10. I increased the PEEP to +15 with negligible improvement in O2 sats. family made patient DNR with comfort measures and she . - Additional Data Confirmation of as documented by pronouncing clinician: no pulse Family: at bedside Attending/PCP notified?: Yes Attending physician: Lyle Molina MD
== END 2017-11-01 17:32 | disposition expired ==
LOC: PHED 23:48 → PHEDA 11-01 02:21 → PHICU 11-01 08:45
PROVIDERS: ADMIT Internal Medicine Critical Care Medicine; ATTEND Internal Medicine Critical Care Medicine